=== PATIENT | female | born 1950 | race Caucasian/White ===

== ENCOUNTER → 2017-11-02 11:29 | Outpatient (REF) | payer MEDICARE, MEDICAID, SELFPAY ==
[2017-11-02 12:01] LABS: Prothrombin Time 28.6 sec (9.3-10.8)
== END ==
LOC: LBN 11:29
PROVIDERS: PCP Nurse Practitioner Family; Visit Provider Family Medicine
DX: I48.91 Unspecified atrial fibrillation (principal); Z79.01 Long term (current) use of anticoagulants
CPT/HCPCS: 85610

== ENCOUNTER 2017-11-16 12:10 | Outpatient (REF) | payer MEDICARE, MEDICAID, SELFPAY ==
[2017-11-16 13:44] LABS: Prothrombin Time 40.5 sec (9.3-10.8)
[2017-11-16 13:59] LABS: INR 4.4 (1.0-3.5)
== END 2017-11-16 12:30 ==
LOC: LBN 12:10
PROVIDERS: PCP Nurse Practitioner Family; Visit Provider Family Medicine
DX: I48.91 Unspecified atrial fibrillation (principal); Z79.01 Long term (current) use of anticoagulants
CPT/HCPCS: 85610

== ENCOUNTER 2017-11-23 11:33 | Outpatient (REF) | payer MEDICARE, MEDICAID, SELFPAY ==
[2017-11-23 12:02] LABS: INR 2.7 (1.0-3.5); Prothrombin Time 25.2 sec (9.3-10.8)
== END 2017-11-23 11:53 ==
LOC: LBN 11:33
PROVIDERS: PCP Nurse Practitioner Family; Visit Provider Family Medicine
DX: I48.91 Unspecified atrial fibrillation (principal); Z79.01 Long term (current) use of anticoagulants
CPT/HCPCS: 85610

== ENCOUNTER 2017-11-30 11:58 | Outpatient (REF) | payer MEDICARE, MEDICAID, SELFPAY ==
[2017-11-30 13:33] LABS: INR 3.1 (1.0-3.5); Prothrombin Time 29.3 sec (9.3-10.8)
== END 2017-11-30 12:18 ==
LOC: LBN 11:58
PROVIDERS: PCP Nurse Practitioner Family; Visit Provider Family Medicine
DX: I48.91 Unspecified atrial fibrillation (principal); Z79.01 Long term (current) use of anticoagulants
CPT/HCPCS: 85610

== ENCOUNTER 2017-12-08 11:39 | Outpatient (REF) | payer MEDICARE, MEDICAID, SELFPAY ==
[2017-12-08 14:42] LABS: Prothrombin Time 38.1 sec (9.3-10.8)
[2017-12-08 15:02] LABS: INR 4.1 (1.0-3.5)
== END 2017-12-08 11:59 ==
LOC: LBN 11:39
PROVIDERS: PCP Nurse Practitioner Family; Visit Provider Family Medicine
DX: I48.91 Unspecified atrial fibrillation (principal); Z79.01 Long term (current) use of anticoagulants
CPT/HCPCS: 85610

== ENCOUNTER 2017-12-17 10:58 | Outpatient (REF) | payer MEDICARE, MEDICAID, SELFPAY ==
[2017-12-17 12:07] LABS: INR 2.9 (1.0-3.5); Prothrombin Time 27.2 sec (9.3-10.8)
== END 2017-12-17 11:18 ==
LOC: LBN 10:58
PROVIDERS: PCP Nurse Practitioner Family; Visit Provider Family Medicine
DX: I48.91 Unspecified atrial fibrillation (principal); Z79.01 Long term (current) use of anticoagulants
CPT/HCPCS: 85610

== ENCOUNTER 2017-12-22 11:36 | Outpatient (REF) | payer MEDICARE, MEDICAID, SELFPAY ==
[2017-12-22 13:42] LABS: BUN 18 mg/dL (7-18); CREATININE 0.89 mg/dL (0.55-1.02); Calcium 9.2 mg/dL (8.5-10.1); Chloride 104 mmol/L (98-107); Glucose 80 mg/dL (70-100); Potassium 4.5 mmol/L (3.5-5.1); Sodium 142 mmol/L (136-145); TSH (W/Ref FT4) 9.44 uIU/mL (0.358-3.74)
[2017-12-22 13:53] LABS: Prothrombin Time 42.2 sec (9.3-10.8)
[2017-12-22 13:59] LABS: INR 4.6 (1.0-3.5)
[2017-12-22 14:08] LABS: FREE T4 0.97 ng/dL (0.76-1.46)
== END 2017-12-22 11:56 ==
LOC: LBN 11:36
PROVIDERS: PCP Nurse Practitioner Family; Visit Provider Family Medicine
DX: I10 Essential (primary) hypertension (principal); I48.91 Unspecified atrial fibrillation; R63.5 Abnormal weight gain
CPT/HCPCS: 80048; 84439; 84443; 85610

== ENCOUNTER 2017-12-24 11:23 | Outpatient (REF) | payer MEDICARE, MEDICAID, SELFPAY ==
[2017-12-24 11:54] LABS: INR 2.2 (1.0-3.5); Prothrombin Time 20.9 sec (9.3-10.8)
== END 2017-12-24 11:43 ==
LOC: LBN 11:23
PROVIDERS: PCP Nurse Practitioner Family; Visit Provider Family Medicine
DX: I48.91 Unspecified atrial fibrillation (principal); Z79.01 Long term (current) use of anticoagulants
CPT/HCPCS: 85610

== ENCOUNTER 2017-12-31 12:27 | Outpatient (CLI) | payer MEDICARE, MEDICAID, SELFPAY ==
[2017-12-31 16:24] LABS: Prothrombin Time 18.8 sec (9.3-10.8)
== END 2017-12-31 12:47 ==
LOC: LBN 13:44 → LBO 13:44
PROVIDERS: PCP Nurse Practitioner Family; Visit Provider Family Medicine
DX: I48.2 Chronic atrial fibrillation (principal); Z79.01 Long term (current) use of anticoagulants
CPT/HCPCS: 36415; 85610

== ENCOUNTER 2018-01-10 13:03 | Outpatient (REF) | payer MEDICARE, MEDICAID, SELFPAY ==
[2018-01-10 14:56] LABS: Prothrombin Time 17.7 sec (9.3-10.8)
[2018-01-10 14:57] LABS: INR 1.8 (1.0-3.5)
== END 2018-01-10 13:23 ==
LOC: LBN 13:03
PROVIDERS: PCP Nurse Practitioner Family; Visit Provider Family Medicine
DX: I48.91 Unspecified atrial fibrillation (principal)
CPT/HCPCS: 85610

== ENCOUNTER 2018-01-17 10:32 | Outpatient (REF) | payer MEDICARE, MEDICAID, SELFPAY ==
[2018-01-17 11:16] LABS: INR 1.7 (1.0-3.5); Prothrombin Time 16.3 sec (9.3-10.8)
== END 2018-01-17 10:52 ==
LOC: LBN 10:32
PROVIDERS: PCP Nurse Practitioner Family; Visit Provider Family Medicine
DX: I48.91 Unspecified atrial fibrillation (principal); Z79.01 Long term (current) use of anticoagulants
CPT/HCPCS: 85610

== ENCOUNTER 2018-01-24 11:27 | Outpatient (REF) | payer MEDICARE, MEDICAID, SELFPAY ==
[2018-01-24 11:59] LABS: INR 1.7 (1.0-3.5); Prothrombin Time 16.5 sec (9.3-10.8)
== END 2018-01-24 11:47 ==
LOC: LBN 11:27
PROVIDERS: PCP Nurse Practitioner Family; Visit Provider Family Medicine
DX: I48.91 Unspecified atrial fibrillation (principal); Z79.01 Long term (current) use of anticoagulants
CPT/HCPCS: 85610

== ENCOUNTER 2018-02-01 10:22 | Outpatient (CLI) | payer MEDICARE, MEDICAID, SELFPAY ==
[2018-02-01 11:12] LABS: INR 1.8 (1.0-3.5); Prothrombin Time 17.2 sec (9.3-10.8)
== END 2018-02-01 10:42 ==
PROVIDERS: PCP Nurse Practitioner Family; Visit Provider Family Medicine
DX: I48.91 Unspecified atrial fibrillation (principal); Z79.01 Long term (current) use of anticoagulants
CPT/HCPCS: 36415; 85610

== ENCOUNTER 2018-02-04 14:41 | Outpatient (REF) | payer MEDICARE, MEDICAID, SELFPAY ==
[2018-02-04 15:27] LABS: TSH 5.24 uIU/mL (0.358-3.74)
== END 2018-02-04 15:01 ==
LOC: LBN 14:41
PROVIDERS: PCP Nurse Practitioner Family; Visit Provider Family Medicine
DX: E03.9 Hypothyroidism, unspecified (principal)
CPT/HCPCS: 84443

== ENCOUNTER 2018-02-08 12:16 | Outpatient (REF) | payer MEDICARE, MEDICAID, SELFPAY ==
[2018-02-08 13:28] LABS: INR 1.8 (1.0-3.5); Prothrombin Time 17.1 sec (9.3-10.8)
== END 2018-02-08 12:36 ==
LOC: LBN 12:16
PROVIDERS: PCP Nurse Practitioner Family; Visit Provider Family Medicine
DX: I48.91 Unspecified atrial fibrillation (principal); Z79.01 Long term (current) use of anticoagulants
CPT/HCPCS: 85610

== ENCOUNTER 2018-02-15 11:26 | Outpatient (REF) | payer MEDICARE, MEDICAID, SELFPAY ==
[2018-02-15 12:28] LABS: Prothrombin Time 18.2 sec (9.3-10.8)
[2018-02-15 12:33] LABS: INR 1.9 (1.0-3.5)
== END 2018-02-15 11:46 ==
LOC: LBN 11:26
PROVIDERS: PCP Nurse Practitioner Family; Visit Provider Family Medicine
DX: I48.91 Unspecified atrial fibrillation (principal); Z79.01 Long term (current) use of anticoagulants
CPT/HCPCS: 85610

== ENCOUNTER 2018-02-22 11:37 | Outpatient (REF) | payer MEDICARE, MEDICAID, SELFPAY ==
[2018-02-22 13:02] LABS: INR 2.1 (1.0-3.5)
== END 2018-02-22 11:57 ==
LOC: LBN 11:37
PROVIDERS: PCP Nurse Practitioner Family; Visit Provider Family Medicine
DX: I48.91 Unspecified atrial fibrillation (principal); Z79.01 Long term (current) use of anticoagulants
CPT/HCPCS: 85610

== ENCOUNTER 2018-03-01 11:52 | Outpatient (REF) | payer MEDICARE, MEDICAID, SELFPAY ==
[2018-03-01 12:42] LABS: Prothrombin Time 18.6 sec (9.3-11.0)
[2018-03-01 12:53] LABS: INR 1.8 (1.0-3.5)
== END 2018-03-01 12:12 ==
LOC: LBN 11:52
PROVIDERS: PCP Nurse Practitioner Family; Visit Provider Family Medicine
DX: I48.91 Unspecified atrial fibrillation (principal); Z79.01 Long term (current) use of anticoagulants
CPT/HCPCS: 85610

== ENCOUNTER 2018-03-03 11:45 | Outpatient (REF) | payer MEDICARE, MEDICAID, SELFPAY ==
[2018-03-03 12:09] LABS: Abs Immature Grans 0.01 k/cumm (0.0-0.09); Absolute Basophil Count 0.02 k/cumm (0.0-0.2); Absolute Eosinophil Count 0.19 k/cumm (0.0-0.7); Absolute Lymphocyte Count 1.64 k/cumm (1.2-3.4); Absolute Monocyte Count 0.52 k/cumm (0.11-0.7); Absolute Neutrophil Count 3.04 k/cumm (1.2-6.7); Basophils % 0.4; Eosinophils % 3.5; HCT 42.1 % (36.0-46.0); HGB 13.5 g/dL (12.0-15.5); Immature Grans % 0.2; Lymphocytes % 30.3; Mean Corp. HGB Concentration 32.1 g/dL (32.0-36.0); Mean Corpuscular Hemoglobin 29.6 pg (27.0-33.0); Mean Corpuscular Volume 92.3 fL (80-95); Mean Platelet Volume 12.1 fL (8.0-11.0); Monocytes % 9.6; Platelet Count 184 x1000/uL (130-400); RBC 4.56 m/cumm (4.00-5.20); RBC Distribution Width 14.5 % (11.7-14.6); White Blood Cell Count 5.42 k/cumm (4.4-10.8)
[2018-03-03 13:02] LABS: ALT 32 U/L (12-78); AST 41 U/L (15-37); Albumin 3.9 g/dL (3.4-5.0); Alkaline Phosphatase 113 U/L (46-116); Anion Gap 9.5 mmol/L (3-11); BUN 16 mg/dL (7-18); Bilirubin, Total 0.6 mg/dL (0.2-1.0); CO2 29.5 mmol/L (21.0-32.0); CREATININE 0.75 mg/dL (0.55-1.02); Calcium 9.3 mg/dL (8.5-10.1); Chloride 103 mmol/L (98-107); Glucose 84 mg/dL (70-100); Potassium 4.3 mmol/L (3.5-5.1); Sodium 142 mmol/L (136-145); Total Protein 7.7 g/dL (6.4-8.2)
== END 2018-03-03 12:05 ==
LOC: LBN 11:45
PROVIDERS: PCP Nurse Practitioner Family; Visit Provider Family Medicine
DX: R53.83 Other fatigue (principal); N39.0 Urinary tract infection, site not specified
CPT/HCPCS: 80053; 87077; 85025; 87086

== ENCOUNTER 2018-03-31 11:41 | Outpatient (REF) | payer MEDICARE, MEDICAID, SELFPAY ==
[2018-03-31 12:13] LABS: INR 2.1 (0.9-1.1); Prothrombin Time 21.5 sec (9.3-11.0)
== END 2018-03-31 12:01 ==
LOC: LBN 11:41
PROVIDERS: PCP Nurse Practitioner Family; Visit Provider Family Medicine
DX: I48.91 Unspecified atrial fibrillation (principal); Z79.01 Long term (current) use of anticoagulants
CPT/HCPCS: 85610

== ENCOUNTER 2018-04-14 11:59 | Outpatient (REF) | payer MEDICARE, MEDICAID, SELFPAY ==
[2018-04-14 13:03] LABS: Prothrombin Time 13.5 sec (9.3-11.0)
[2018-04-14 13:13] LABS: INR 1.3 (0.9-1.1)
[2018-04-14 13:14] LABS: TSH (W/Ref FT4) 3.09 uIU/mL (0.358-3.74)
== END 2018-04-14 12:19 ==
LOC: LBN 11:59
PROVIDERS: PCP Nurse Practitioner Family; Visit Provider Family Medicine
DX: I48.91 Unspecified atrial fibrillation (principal); R00.2 Palpitations; Z79.01 Long term (current) use of anticoagulants
CPT/HCPCS: 84443; 85610

== ENCOUNTER 2018-04-21 12:02 | Outpatient (REF) | payer MEDICARE, MEDICAID, SELFPAY ==
[2018-04-21 12:40] LABS: INR 2.5 (0.9-1.1); Prothrombin Time 25.6 sec (9.3-11.0)
== END 2018-04-21 12:22 ==
LOC: LBN 12:02
PROVIDERS: PCP Nurse Practitioner Family; Visit Provider Family Medicine
DX: I48.91 Unspecified atrial fibrillation (principal); Z79.01 Long term (current) use of anticoagulants
CPT/HCPCS: 85610

== ENCOUNTER 2018-05-03 15:32 | Outpatient (REF) | payer MEDICARE, MEDICAID, SELFPAY ==
[2018-05-03 16:18] LABS: Anion Gap 7.3 mmol/L (3-11); BUN 18 mg/dL (7-18); CO2 32.7 mmol/L (21.0-32.0); CREATININE 0.92 mg/dL (0.55-1.02); Calcium 8.8 mg/dL (8.5-10.1); Chloride 103 mmol/L (98-107); Glucose 125 mg/dL (70-100); Potassium 3.8 mmol/L (3.5-5.1); Sodium 143 mmol/L (136-145)
[2018-05-03 16:23] LABS: INR 3.1 (0.9-1.1); Prothrombin Time 31.4 sec (9.3-11.0)
== END 2018-05-03 15:52 ==
LOC: LBN 15:32
PROVIDERS: PCP Nurse Practitioner Family; Visit Provider Family Medicine
DX: I48.91 Unspecified atrial fibrillation (principal); R60.9 Edema, unspecified; Z79.01 Long term (current) use of anticoagulants
CPT/HCPCS: 80048; 85610

== ENCOUNTER 2018-05-16 09:59 | Outpatient (REF) | payer MEDICARE, MEDICAID, SELFPAY ==
[2018-05-16 10:46] LABS: INR 3.1 (0.9-1.1); Prothrombin Time 31.7 sec (9.3-11.0)
== END 2018-05-16 10:19 ==
LOC: LBN 09:59
PROVIDERS: PCP Nurse Practitioner Family; Visit Provider Family Medicine
DX: I48.91 Unspecified atrial fibrillation (principal); Z79.01 Long term (current) use of anticoagulants
CPT/HCPCS: 85610

== ENCOUNTER 2018-05-19 11:20 | Outpatient (REF) | payer MEDICARE, MEDICAID, SELFPAY ==
[2018-05-19 12:14] LABS: INR 3.4 (0.9-1.1); Prothrombin Time 34.2 sec (9.3-11.0)
== END 2018-05-19 11:40 ==
LOC: LBN 11:20
PROVIDERS: PCP Nurse Practitioner Family; Visit Provider Family Medicine
DX: I48.91 Unspecified atrial fibrillation (principal); Z79.01 Long term (current) use of anticoagulants
CPT/HCPCS: 85610

== ENCOUNTER 2018-05-26 12:33 | Outpatient (REF) | payer MEDICARE, MEDICAID, SELFPAY ==
[2018-05-26 13:25] LABS: INR 2.5 (0.9-1.1)
== END 2018-05-26 12:53 ==
LOC: LBN 12:33
PROVIDERS: PCP Nurse Practitioner Family; Visit Provider Family Medicine
DX: I48.91 Unspecified atrial fibrillation (principal); Z79.01 Long term (current) use of anticoagulants
CPT/HCPCS: 85610

== ENCOUNTER 2018-06-09 12:01 | Outpatient (REF) | payer MEDICARE, MEDICAID, SELFPAY ==
[2018-06-09 13:25] LABS: ALT 23 U/L (12-78); AST 31 U/L (15-37); Albumin 3.9 g/dL (3.4-5.0); Alkaline Phosphatase 126 U/L (46-116); Anion Gap 9.7 mmol/L (3-11); BUN 16 mg/dL (7-18); Bilirubin, Total 0.6 mg/dL (0.2-1.0); CO2 30.3 mmol/L (21.0-32.0); CREATININE 0.85 mg/dL (0.55-1.02); Calcium 9.1 mg/dL (8.5-10.1); Chloride 103 mmol/L (98-107); Glucose 81 mg/dL (70-100); Potassium 3.6 mmol/L (3.5-5.1); Sodium 143 mmol/L (136-145); Total Protein 7.9 g/dL (6.4-8.2)
[2018-06-09 13:26] LABS: INR 2.1 (0.9-1.1); Prothrombin Time 21.5 sec (9.3-11.0)
== END 2018-06-09 12:21 ==
LOC: LBN 12:01
PROVIDERS: PCP Nurse Practitioner Family; Visit Provider Family Medicine
DX: I48.91 Unspecified atrial fibrillation (principal); I10 Essential (primary) hypertension; Z79.01 Long term (current) use of anticoagulants
CPT/HCPCS: 80053; 85610

== ENCOUNTER 2018-06-16 09:14 | Outpatient (REF) | payer MEDICARE, MEDICAID, SELFPAY ==
[2018-06-16 09:44] LABS: INR 2.5 (0.9-1.1); Prothrombin Time 25.2 sec (9.3-11.0)
== END 2018-06-16 09:34 ==
LOC: LBN 09:14
PROVIDERS: PCP Nurse Practitioner Family; Visit Provider Family Medicine
DX: I48.91 Unspecified atrial fibrillation (principal); Z79.01 Long term (current) use of anticoagulants
CPT/HCPCS: 85610

== ENCOUNTER 2018-06-30 10:07 | Outpatient (REF) | payer MEDICARE, MEDICAID, SELFPAY ==
[2018-06-30 10:36] LABS: INR 2.2 (0.9-1.1); Prothrombin Time 22.5 sec (9.3-11.0)
== END 2018-06-30 10:27 ==
LOC: LBN 10:07
PROVIDERS: PCP Nurse Practitioner Family; Visit Provider Family Medicine
DX: I48.91 Unspecified atrial fibrillation (principal); Z79.01 Long term (current) use of anticoagulants
CPT/HCPCS: 85610

== ENCOUNTER 2018-07-29 08:59 | Outpatient (REF) | payer MEDICARE, MEDICAID, SELFPAY ==
[2018-07-29 09:51] LABS: INR 3.7 (0.9-1.1); Prothrombin Time 37.8 sec (9.3-11.0)
== END 2018-07-29 09:19 ==
LOC: LBN 08:59
PROVIDERS: PCP Nurse Practitioner Family; Visit Provider Family Medicine
DX: I48.91 Unspecified atrial fibrillation (principal); Z79.01 Long term (current) use of anticoagulants
CPT/HCPCS: 85610

== ENCOUNTER 2018-08-04 14:13 | Outpatient (REF) | payer MEDICARE, MEDICAID, SELFPAY ==
[2018-08-04 14:41] LABS: INR 3.5 (0.9-1.1); Prothrombin Time 35.4 sec (9.3-11.0)
== END 2018-08-04 14:33 ==
LOC: LBN 14:13
PROVIDERS: PCP Nurse Practitioner Family; Visit Provider Family Medicine
DX: I48.91 Unspecified atrial fibrillation (principal); Z79.01 Long term (current) use of anticoagulants
CPT/HCPCS: 85610

== ENCOUNTER 2018-08-06 11:44 | Outpatient (CLI) | payer MEDICARE, MEDICAID, SELFPAY ==
[2018-08-06 12:09] LABS: Absolute Basophil Count 0.01 k/cumm (0.0-0.2); Absolute Eosinophil Count 0.08 k/cumm (0.0-0.7); Absolute Lymphocyte Count 1.85 k/cumm (1.2-3.4); Absolute Monocyte Count 0.68 k/cumm (0.11-0.7); Absolute Neutrophil Count 2.93 k/cumm (1.2-6.7); Basophils % 0.2; Eosinophils % 1.4; HCT 44.5 % (36.0-46.0); HGB 14.9 g/dL (12.0-15.5); Lymphocytes % 33.3; Mean Corp. HGB Concentration 33.5 g/dL (32.0-36.0); Mean Corpuscular Hemoglobin 29.3 pg (27.0-33.0); Mean Corpuscular Volume 87.6 fL (80-95); Mean Platelet Volume 12.7 fL (8.0-11.0); Monocytes % 12.3; Neutrophils % 52.8; Platelet Count 156 x1000/uL (130-400); RBC 5.08 m/cumm (4.00-5.20); RBC Distribution Width 14.1 % (11.7-14.6); White Blood Cell Count 5.55 k/cumm (4.4-10.8)
[2018-08-06 12:36] LABS: Prothrombin Time 52.2 sec (9.3-11.0)
[2018-08-06 12:44] LABS: INR 5.1 (0.9-1.1)
[2018-08-06 13:50] LABS: ALT 34 U/L (12-78); AST 38 U/L (15-37); Albumin 3.9 g/dL (3.4-5.0); Alkaline Phosphatase 100 U/L (46-116); Anion Gap 7.5 mmol/L (3-11); BUN 16 mg/dL (7-18); Bilirubin, Total 0.8 mg/dL (0.2-1.0); CO2 29.5 mmol/L (21.0-32.0); CREATININE 0.86 mg/dL (0.55-1.02); Calcium 9.5 mg/dL (8.5-10.1); Chloride 102 mmol/L (98-107); Glucose 98 mg/dL (70-100); Potassium 3.6 mmol/L (3.5-5.1); Sodium 139 mmol/L (136-145); TSH 0.95 uIU/mL (0.358-3.74); Total Protein 7.6 g/dL (6.4-8.2)
== END 2018-08-06 12:04 ==
PROVIDERS: PCP Nurse Practitioner Family; Visit Provider Family Medicine
DX: I48.91 Unspecified atrial fibrillation (principal); R53.83 Other fatigue; E03.9 Hypothyroidism, unspecified; Z79.01 Long term (current) use of anticoagulants
CPT/HCPCS: 36415; 80053; 84443; 85025; 85610

== ENCOUNTER 2018-08-08 09:14 | Outpatient (REF) | payer MEDICARE, MEDICAID, SELFPAY ==
[2018-08-08 09:33] LABS: INR 2.9 (0.9-1.1); Prothrombin Time 29.4 sec (9.3-11.0)
== END 2018-08-08 09:34 ==
LOC: LBN 09:14
PROVIDERS: PCP Nurse Practitioner Family; Visit Provider Family Medicine
DX: I48.91 Unspecified atrial fibrillation (principal); Z79.01 Long term (current) use of anticoagulants
CPT/HCPCS: 85610

== ENCOUNTER 2018-08-09 13:46 | Outpatient (REF) | payer MEDICARE, MEDICAID, SELFPAY ==
[2018-08-09 15:21] LABS: Bilirubin Negative (Negative); Blood Moderate (Negative); Clarity Clear; Glucose Negative (Negative); Ketones Negative (Negative); Leukocyte Esterase Negative (Negative); Nitrite Negative (Negative); pH 5.5 (5-8)
[2018-08-09 15:31] LABS: Epithelial Cells Rare HPF (Negative); WBC 0-2 HPF (0-5)
[2018-08-09 15:32] LABS: Bacteria Negative HPF (Negative); C & S Indicated? No; Casts Negative LPF (Negative); Crystals Negative HPF (Negative); Mucus Negative (Negative)
== END 2018-08-09 14:06 ==
LOC: LBN 13:46
PROVIDERS: PCP Nurse Practitioner Family; Visit Provider Family Medicine
DX: N39.0 Urinary tract infection, site not specified (principal)
CPT/HCPCS: 81003; 81015

== ENCOUNTER 2018-08-16 14:48 | Outpatient (REF) | payer MEDICARE, MEDICAID, SELFPAY ==
[2018-08-16 15:40] LABS: INR 2.9 (0.9-1.1)
== END 2018-08-16 15:08 ==
LOC: LBN 14:48
PROVIDERS: PCP Nurse Practitioner Family; Visit Provider Family Medicine
DX: I48.91 Unspecified atrial fibrillation (principal); Z79.01 Long term (current) use of anticoagulants
CPT/HCPCS: 85610

== ENCOUNTER 2018-08-19 12:34 | Outpatient (REF) | payer MEDICARE, MEDICAID, SELFPAY ==
[2018-08-19 13:44] LABS: Bilirubin Negative (Negative); Blood Small (Negative); Clarity Clear; Glucose Negative (Negative); Ketones Negative (Negative); Leukocyte Esterase Negative (Negative); Nitrite Negative (Negative); Specific Gravity 1.015 (1.005-1.025); Urobilinogen 0.2 EU/dL (Up TO 0.2)
[2018-08-19 14:01] LABS: Bacteria Rare HPF (Negative); C & S Indicated? No; Casts Negative LPF (Negative); Crystals Negative HPF (Negative); Epithelial Cells Few HPF (Negative); Mucus Trace (Negative); Other Cells Few Renal (Negative); RBC 0-2 (0-2); WBC 0-2 HPF (0-5)
== END 2018-08-19 12:54 ==
LOC: LBN 12:34
PROVIDERS: PCP Nurse Practitioner Family; Visit Provider Family Medicine
DX: N39.0 Urinary tract infection, site not specified (principal)
CPT/HCPCS: 81003; 81015

== ENCOUNTER 2018-08-31 15:38 | Outpatient (REF) | payer MEDICARE, MEDICAID, SELFPAY ==
[2018-08-31 16:17] LABS: INR 1.7 (0.9-1.1); Prothrombin Time 17.2 sec (9.3-11.0)
== END 2018-08-31 15:58 ==
LOC: LBN 15:38
PROVIDERS: PCP Nurse Practitioner Family; Visit Provider Family Medicine
DX: I48.91 Unspecified atrial fibrillation (principal); Z79.01 Long term (current) use of anticoagulants
CPT/HCPCS: 85610

== ENCOUNTER 2018-09-07 11:40 | Outpatient (REF) | payer MEDICARE, MEDICAID, SELFPAY ==
[2018-09-07 12:23] LABS: Prothrombin Time 18.6 sec (9.3-11.0)
[2018-09-07 12:28] LABS: INR 1.8 (0.9-1.1)
== END 2018-09-07 12:00 ==
LOC: LBN 11:40
PROVIDERS: PCP Nurse Practitioner Family; Visit Provider Family Medicine
DX: I48.91 Unspecified atrial fibrillation (principal); Z79.01 Long term (current) use of anticoagulants
CPT/HCPCS: 85610

== ENCOUNTER 2018-09-16 16:01 | Outpatient (CLI) | payer MEDICARE, MEDICAID, SELFPAY ==
[2018-09-16 16:37] LABS: INR 2.3 (0.9-1.1); Prothrombin Time 23.3 sec (9.3-11.0)
== END 2018-09-16 16:21 ==
PROVIDERS: PCP Nurse Practitioner Family; Visit Provider Family Medicine
DX: I48.91 Unspecified atrial fibrillation (principal); Z79.01 Long term (current) use of anticoagulants
CPT/HCPCS: 36415; 85610

== ENCOUNTER 2018-09-22 15:10 | Outpatient (CLI) | payer MEDICARE, MEDICAID, SELFPAY ==
[2018-09-22 16:08] LABS: INR 2.7 (0.9-1.1); Prothrombin Time 26.9 sec (9.3-11.0)
== END 2018-09-22 15:30 ==
PROVIDERS: PCP Family Medicine; Visit Provider Family Medicine
DX: I48.91 Unspecified atrial fibrillation (principal); Z79.01 Long term (current) use of anticoagulants
CPT/HCPCS: 36415; 85610

== ENCOUNTER 2018-09-28 11:31 | Outpatient (REF) | payer MEDICARE, MEDICAID, SELFPAY ==
[2018-09-28 14:10] LABS: INR 1.8 (0.9-1.1); Prothrombin Time 18.1 sec (9.3-11.0)
== END 2018-09-28 11:51 ==
LOC: LBN 11:31
PROVIDERS: PCP Family Medicine; Visit Provider Family Medicine
DX: I48.91 Unspecified atrial fibrillation (principal); Z79.01 Long term (current) use of anticoagulants
CPT/HCPCS: 85610

== ENCOUNTER 2019-01-12 08:45 | Outpatient (REF) | payer MEDICARE, MEDICAID, SELFPAY ==
[2019-01-12 10:16] LABS: Iron 63 ug/dL (50-175)
[2019-01-12 10:24] LABS: AST 30 U/L (15-37); Albumin 3.9 g/dL (3.4-5.0); Anion Gap 9.8 mmol/L (3-11); Bilirubin, Total 0.8 mg/dL (0.2-1.0); CO2 28.2 mmol/L (21.0-32.0); Chloride 105 mmol/L (98-107); Glucose 91 mg/dL (70-100); HDL Cholesterol 39 mg/dL (40-60); Potassium 3.9 mmol/L (3.5-5.1); Sodium 143 mmol/L (136-145)
[2019-01-12 10:57] LABS: ALT 35 U/L (14-59); Alkaline Phosphatase 131 U/L (46-116); BUN 18 mg/dL (7-18); CREATININE 0.82 mg/dL (0.55-1.02); Calcium 9.4 mg/dL (8.5-10.1); Calculated LDL 135 mg/dL; Cholesterol 202 mg/dL (50-200); Total Protein 7.7 g/dL (6.4-8.2); Triglyceride 144 mg/dL (30-150)
== END 2019-01-12 09:05 ==
LOC: LBN 08:45
PROVIDERS: Visit Provider Nurse Practitioner Gerontology
DX: E03.9 Hypothyroidism, unspecified (principal); I10 Essential (primary) hypertension; E78.5 Hyperlipidemia, unspecified; I48.91 Unspecified atrial fibrillation; Z79.899 Other long term (current) drug therapy
CPT/HCPCS: 80053; 80061; 83540; 84443

== ENCOUNTER 2019-01-16 13:52 | Outpatient (REF) | payer MEDICARE, MEDICAID, SELFPAY ==
[2019-01-16 14:17] LABS: Abs Immature Grans 0.02 k/cumm (0.0-0.09); Absolute Basophil Count 0.02 k/cumm (0.0-0.2); Absolute Eosinophil Count 0.07 k/cumm (0.0-0.7); Absolute Lymphocyte Count 2.13 k/cumm (1.2-3.4); Absolute Monocyte Count 0.51 k/cumm (0.11-0.7); Basophils % 0.3; Eosinophils % 1.2; HCT 42.6 % (36.0-46.0); HGB 14.1 g/dL (12.0-15.5); Immature Grans % 0.3; Lymphocytes % 36.4; Mean Corp. HGB Concentration 33.1 g/dL (32.0-36.0); Mean Corpuscular Hemoglobin 29.9 pg (27.0-33.0); Mean Corpuscular Volume 90.3 fL (80-95); Mean Platelet Volume 11.9 fL (8.0-11.0); Monocytes % 8.7; Neutrophils % 53.1; Platelet Count 220 x1000/uL (130-400); RBC 4.72 m/cumm (4.00-5.20); RBC Distribution Width 14.5 % (11.7-14.6); White Blood Cell Count 5.85 k/cumm (4.4-10.8)
== END 2019-01-16 14:12 ==
LOC: LBN 13:52
PROVIDERS: Visit Provider Nurse Practitioner Gerontology
DX: M62.81 Muscle weakness (generalized) (principal); F03.90 Unspecified dementia, unspecified severity, without behavioral disturbance, psychotic disturbance, mood disturbance, and anxiety; I10 Essential (primary) hypertension
CPT/HCPCS: 85025

== ENCOUNTER 2019-05-01 13:08 | Outpatient (REF) | payer MEDICARE, MEDICAID, SELFPAY ==
[2019-05-01 13:46] LABS: INR 2.8 (0.9-1.1); Prothrombin Time 27.1 sec (9.3-11.0)
== END 2019-05-01 13:28 ==
LOC: LBN 13:08
PROVIDERS: PCP Family Medicine; Visit Provider Family Medicine
DX: I48.91 Unspecified atrial fibrillation (principal); Z79.01 Long term (current) use of anticoagulants
CPT/HCPCS: 85610

== ENCOUNTER 2019-05-15 18:13 | Outpatient (REF) | payer MEDICARE, MEDICAID, SELFPAY ==
[2019-05-15 19:09] LABS: INR 2.5 (0.9-1.1); Prothrombin Time 24.8 sec (9.3-11.0)
== END 2019-05-15 18:33 ==
LOC: NCHCN 18:13
PROVIDERS: PCP Family Medicine; Visit Provider Family Medicine
DX: I48.91 Unspecified atrial fibrillation (principal); Z79.01 Long term (current) use of anticoagulants
CPT/HCPCS: 85610

== ENCOUNTER 2019-05-29 12:21 | Outpatient (REF) | payer MEDICARE, MEDICAID, SELFPAY ==
[2019-05-29 14:40] LABS: Anion Gap 9.7 mmol/L (3-11); BUN 19 mg/dL (7-18); CO2 30.3 mmol/L (21.0-32.0); CREATININE 0.71 mg/dL (0.55-1.02); Calcium 9.3 mg/dL (8.5-10.1); Chloride 103 mmol/L (98-107); Glucose 77 mg/dL (74-106); Potassium 4.1 mmol/L (3.5-5.1); Sodium 143 mmol/L (136-145); TSH (W/Ref FT4) 3.99 uIU/mL (0.36-3.74)
[2019-05-29 14:56] LABS: FREE T4 1.42 ng/dL (0.76-1.46)
== END 2019-05-29 12:41 ==
LOC: LBN 12:21
PROVIDERS: PCP Family Medicine; Visit Provider Family Medicine
DX: I10 Essential (primary) hypertension (principal); E03.9 Hypothyroidism, unspecified
CPT/HCPCS: 80048; 84439; 84443

== ENCOUNTER 2019-08-23 20:11 | Outpatient (REF) | payer MEDICARE, MEDICAID, SELFPAY ==
[2019-08-23 15:32] LABS: Bilirubin Negative (Negative); Blood Negative (Negative); Clarity Clear (Clear); Glucose Negative (Negative); Ketones Negative (Negative); Leukocyte Esterase Negative (Negative); Nitrite Negative (Negative); Urobilinogen 0.2 EU/dL (Up TO 0.2)
== END 2019-08-23 20:31 ==
LOC: LBN 20:11
PROVIDERS: PCP Family Medicine; Visit Provider Family Medicine
DX: N39.0 Urinary tract infection, site not specified (principal)
CPT/HCPCS: 81003

== ENCOUNTER 2020-08-07 19:23 | Outpatient (REF) | payer MEDICARE, MEDICAID, SELFPAY ==
[2020-08-07 21:07] LABS: Bilirubin Negative (Negative); Blood Negative (Negative); Glucose Negative (Negative); Ketones Negative (Negative); Leukocyte Esterase Trace (Negative); Nitrite Positive (Negative); Urobilinogen 0.2 EU/dL (Up TO 0.2); pH 7.5 (5-8)
[2020-08-07 21:10] LABS: Clarity Sl Cloudy (Clear)
[2020-08-07 21:14] LABS: Bacteria Many HPF (Negative); C & S Indicated? C&S Done As Ordered; Casts Negative LPF (Negative); Crystals Negative HPF (Negative); Epithelial Cells Rare HPF (Negative); Mucus Negative (Negative); RBC 0-2 HPF (0-2)
== END 2020-08-07 19:24 | disposition home or self-care (01) ==
LOC: LBN 19:23
PROVIDERS: PCP Family Medicine; Visit Provider Family Medicine
DX: R30.0 Dysuria (principal)
CPT/HCPCS: 87077; 81003; 81015; 87086; 87186

== ENCOUNTER 2020-09-29 15:18 | Inpatient (IN) | payer MEDICARE, MEDICAID, SELFPAY ==
--- NOTE | 2020-09-29 15:18 | ED.GENADUL_ITS ---
Discharge Plan Disposition Patient Disposition: [facility] INPATIENT Condition: Stable Discharge Details Clinical Impression: Fracture of left hip Admit Date/Time: 09/29/20 17:50 Admit Provider: Faisal Jones Attending Provider: Faisal Jones Primary Care Provider: Kiersten Oconnor ED Provider: Christina Gonsalez Discharge Data Discharge Date/Time-TO BE ENTERED AT DEPARTURE: 09/29/20 19:28 Medical Decision Making 70-year-old female with a history of atrial fibrillation, mechanical aortic valve replacement, pacemaker, hypertension, Alzheimer's dementia presents from the [facility] for suspected left hip fracture. Medications from the [facility] confirmed that patient is not taking Coumadin due to fall risk. Discussed with nurse practitioner Essence at the [facility] and patient is basically comfort measures only and on mostly prn medication. Patient is a poor historian at baseline and is agitated and irritable in the room. She is laying on her left side and would not allow movement or full inspection of her left side. There was no evidence of head, chest or abdominal trauma. No evidence of b/l upper extremity or right lower extremity trauma. She appears nontoxic. She is confused but does endorse left hip pain. As this fall was unwitnessed, will obtain screening labs, EKG, urinalysis, CT head and cervical spine, chest x-ray, left hip and pelvis x-rays. Will give a dose of IV Tylenol and fluids. Radiology unable to obtain CT head and cervical spine due to patient movement and agitation. They were able to obtain hip and pelvis x-rays and there is a left femoral neck fracture. Chest x-ray notes faint bibasilar opacities but no fracture. There was no report of cough, fever and she has normal oxygen saturation, so do not suspect pneumonia at this time. Will give patient a dose of morphine and Ativan for hip fracture and send back down to radiology once relaxed. Case discussed with patient's brother Enrique who is her guardian and as patient is very active he would like the hip repaired. Case discussed with Dr. Cohn. Likely plan for surgery Wednesday. Case discussed with hospitalist who accepts patient for admission. Will place Spangler catheter as she will be nonambulatory and in prep for surgery. CT head and cervical spine negative for acute findings. Labs reviewed. Normal white blood cell count. CK 113. Medical Records Medical records reviewed: Yes I reviewed the patient's medical records. Imaging Data Radiologic Study: Radiologist's impression: CT Head Without Contrast Exam date and time: 09/29/2020 3:47 PM Age: 70 years old Clinical indication: Injury or trauma; Fall; Concussion/head injury TECHNIQUE: Imaging protocol: Computed tomography of the head without contrast. COMPARISON: CT HEAD WITHOUT CONTRAST 11/02/2016 2:09 PM FINDINGS: Brain: Moderate white matter hypoattenuation present which is nonspecific, but most likely due to chronic small vessel ischemia. Cerebral ventricles: Moderate ventricular dilatation appears to be due to volume loss. Paranasal sinuses: Visualized sinuses are unremarkable. No fluid levels. Mastoid air cells: Visualized mastoid air cells are well aerated. Bones/joints: Unremarkable. No acute fracture. Soft tissues: Unremarkable. IMPRESSION: No acute intracranial pathology CT Cervical Spine Without Contrast Exam date and time: 09/29/2020 3:47 PM Age: 70 years old Clinical indication: Injury or trauma; Fall; Concussion/head injury TECHNIQUE: Imaging protocol: Computed tomography images of the cervical spine without contrast. COMPARISON: CT HEAD WITHOUT CONTRAST 11/02/2016 2:09 PM FINDINGS: Bones/joints: No acute fracture identified. Normal alignment. Discs/Spinal canal/Neural foramina: Multilevel degenerative changes cause [id number] neural foraminal stenoses in the mid cervical spine. Lungs: Lung apices are normal. Soft tissues: Unremarkable. Other findings: Motion limits exam. IMPRESSION: Motion limits exam. Fracture not suspected, but if there is high persistent clinical concern, repeat study is recommended. XR Chest Exam date and time: 09/29/2020 3:52 PM Age: 70 years old Clinical indication: Other: S/P fall R/O FX TECHNIQUE: Imaging protocol: XR of the chest. Views: 1 view. COMPARISON: CR CHEST 2 VIEWS PA,LAT 01/23/2017 5:00 PM FINDINGS: Tubes, catheters and devices: Cardiac leads and postsurgical changes noted. Lungs: Faint bibasilar opacities. Mild blunting of the bilateral costophrenic angles. Heart/Mediastinum: Unremarkable. No cardiomegaly. Bones/joints: Unremarkable. IMPRESSION: 1. No displaced fracture. 2. Faint bibasilar opacities. Suspect atelectasis or infiltrate and tiny effusion on the right. XR Left Hip Exam date and time: 09/29/2020 3:52 PM Age: 70 years old Clinical indication: Other: S/P fall R/O FX TECHNIQUE: Imaging protocol: XR Left hip. Views: 2 or 3 views hip with pelvis when performed. COMPARISON: CT ABD/PELVIS WO W CONTRAST 07/08/2016 10:19 AM FINDINGS: Bones/joints: There is a transverse left femoral neck fracture. There is superior displacement of the distal fragment. Mild angulation. Soft tissues: Unremarkable. IMPRESSION: Mildly displaced left femoral neck fracture Lab Data Lab results reviewed: Yes I reviewed the patient's lab results. Labs: Laboratory Tests Range/Units 09/29/20 09/29/20 09/29/20 17:00 17:00 17:00 WBC (4.4-10.8) 10^3/uL 8.40 RBC (3.93-5.22) 10^6/uL 4.47 Hgb (11.2-15.7) g/dL 13.9 Hct (36.0-46.0) % 41.9 MCV (80-95) fL 93.7 MCH (27.0-33.0) pg 31.1 MCHC (32.0-36.0) % 33.2 RDW (11.7-14.6) % 12.4 Plt Count (130-400) 10^3/uL 162 MPV (8.0-11.0) fL 10.7 Immature Gran % 0.6 Neutrophils % 80.3 Lymphocytes % 11.4 Monocytes % 7.5 Eosinophils % 0.1 Basophils % 0.1 Nucleated RBC % % 0 Absolute Neutrophils (1.2-6.7) 10^3/uL 6.74 H Absolute Lymphocytes (1.2-3.4) 10^3/uL 0.96 L Absolute Monocytes (0.1-0.8) 10^3/uL 0.63 Absolute Eosinophils (0.0-0.7) 10^3/uL 0.01 Absolute Basophils (0.0-0.2) 10^3/uL 0.01 PT (9.3-11.0) sec 11.6 H INR (0.9-1.1) 1.2 H APTT (21.0-27.5) sec 24.3 Sodium (136-145) mmol/L Potassium (3.5-5.1) mmol/L Chloride (98-107) mmol/L Carbon Dioxide (21.0-32.0) mmol/L Anion Gap (3-11) mmol/L BUN (7-18) mg/dL Creatinine (0.55-1.02) mg/dL Estimated GFR/1.73 m2 (mL/min/1.73m2) Glucose (74-106) mg/dL Calcium (8.5-10.1) mg/dL Total Bilirubin (0.2-1.0) mg/dL AST (15-37) U/L ALT (14-59) U/L Alkaline Phosphatase (46-116) U/L Creatine Kinase (26-192) U/L 113 Total Protein (6.4-8.2) g/dL Albumin (3.4-5.0) g/dL Range/Units 09/29/20 17:00 WBC (4.4-10.8) 10^3/uL RBC (3.93-5.22) 10^6/uL Hgb (11.2-15.7) g/dL Hct (36.0-46.0) % MCV (80-95) fL MCH (27.0-33.0) pg MCHC (32.0-36.0) % RDW (11.7-14.6) % Plt Count (130-400) 10^3/uL MPV (8.0-11.0) fL Immature Gran % Neutrophils % Lymphocytes % Monocytes % Eosinophils % Basophils % Nucleated RBC % % Absolute Neutrophils (1.2-6.7) 10^3/uL Absolute Lymphocytes (1.2-3.4) 10^3/uL Absolute Monocytes (0.1-0.8) 10^3/uL Absolute Eosinophils (0.0-0.7) 10^3/uL Absolute Basophils (0.0-0.2) 10^3/uL PT (9.3-11.0) sec INR (0.9-1.1) APTT (21.0-27.5) sec Sodium (136-145) mmol/L 144 Potassium (3.5-5.1) mmol/L 3.9 Chloride (98-107) mmol/L 107 Carbon Dioxide (21.0-32.0) mmol/L 26.7 Anion Gap (3-11) mmol/L 10.3 BUN (7-18) mg/dL 21 H Creatinine (0.55-1.02) mg/dL 0.8 Estimated GFR/1.73 m2 (mL/min/1.73m2) >= 60.00 Glucose (74-106) mg/dL 137 H Calcium (8.5-10.1) mg/dL 9.2 Total Bilirubin (0.2-1.0) mg/dL 0.7 AST (15-37) U/L 36 ALT (14-59) U/L 42 Alkaline Phosphatase (46-116) U/L 93 Creatine Kinase (26-192) U/L Total Protein (6.4-8.2) g/dL 7.5 Albumin (3.4-5.0) g/dL 3.7 ECG Data Attestation: I personally reviewed and interpreted this ECG (s) as follows: Interpretation: Rate of 116, A. fib, right bundle branch block. No STEMI. HPI General Mode of arrival: EMS . Date/Time Provider Initiated Documentation: 09/29/20 15:41 . Limitations to Documentation: altered mental status . Information obtained by: patient, EMS and RN notes reviewed . HPI Narrative: Patient is a 70-year-old female with a history of atrial fibrillation and mechanical aortic valve replacement, pacemaker, hypertension, Alzheimer's dementia presents from the [facility] rehab for potential hip fracture. Staff found patient on the floor in her room at the [facility] due to a suspected unwitnessed fall. Patient c/o of left hip pain to staff at the [facility] who also noted her left lower extremity to be shortened and externally rotated. She was given ativan and morphine prior to arrival. There is no report of known head injury. LEONEL Lowry at the [facility] states that pt is DNR/DNI and has no transport status but states the family would like to know if she has a hip fracture as she is quite active and ambulatory at baseline and are concerned whether it is safe to proceed with surgery considering her cardiac history. Related Data Home Medications Medication Instructions Recorded Confirmed acetaminophen 500 mg PO Q4H PRN 09/29/20 09/29/20 acetaminophen [Tylenol Extra 640 mg PO TID 09/29/20 09/29/20 Strength] bisacodyl 10 mg DC DAILY PRN 09/29/20 09/29/20 docusate sodium [Colace] 100 mg PO BID PRN 09/29/20 09/29/20 hyoscyamine sulfate 0.125 mg PO QID PRN 09/29/20 09/29/20 lorazepam 0.5 - 1 mg IM Q4H PRN 09/29/20 09/29/20 lorazepam 0.5 mg PO Q4H PRN 09/29/20 09/29/20 morphine concentrate 5 mg SUBLINGUAL Q2H PRN 09/29/20 09/29/20 ondansetron HCl 4 mg PO PRN PRN 09/29/20 09/29/20 promethazine 25 mg DC Q6H PRN 09/29/20 09/29/20 scopolamine base 1 patch TRANSDERMAL Q3D PRN 09/29/20 09/29/20 Allergies Allergy/AdvReac Type Severity Reaction Status Date / Time No Known Allergies Allergy Unverified 09/29/20 15:26 Review of Systems Unobtainable due to mental status [facility] Medical History Alzheimer's dementia Atrial fibrillation Fibromyalgia Pacemaker Surgical History H/O aortic valve replacement Social History Smoking/Tobacco Use Status: Never Smoking risk assessment performed?: Yes Drug use: Never Do you feel safe in your relationship?: Yes Exam Const General: other (agitated at time, does not allow staff to move pt around on stretcher) Orientation: alert, awake and confused [facility] Head: normal to inspection Ears: hearing grossly normal bilaterally, external ears normal and TM's normal bilaterally General nose exam: external nose normal Face and sinus: normal facial exam Mouth: mucous membranes dry Eyes General: appearance normal, both eyes and all related structures Eyelids: eyelids normal Pupils: PERRL EOM: EOM intact bilaterally Neck Neck: normal visual inspection Lymphatic: no lymphadenopathy noted Chest Chest: normal inspection of the chest, normal palpation of entire chest wall and no tenderness Resp Effort & Inspection: normal respiratory effort and able to speak in complete sentences Auscultation: clear to auscultation bilaterally Cardio Rate: regular rate Rhythm: regular rhythm GI Inspection: normal to inspection and no abdominal wall ecchymosis Palpation: soft, not firm, no guarding, no hepatosplenomegaly, no masses and nontender Auscultation: hypoactive bowel sounds Back/Spine/Pelvis Back: no CVA tenderness Cervical Spine: No cervical spinal tenderness Thoracic/Lumbar Spine: thoracic and lumbar spine normal to inspection, No thoracic spinal tenderness and No lumbar spinal tenderness Skin General skin exam: no rashes or lesions noted Neuro General: patient alert, patient awake and no meningeal signs Extrem General: normal to inspection, full ROM and capillary refill normal Other: Patient lying on her left side. Bilateral hips and knees flexed. There is a 8 cm x 1 cm superficial abrasion consistent likely with pressure wound in the left groin. There is no evidence of cellulitis. Bilateral DP/PT pulses intact. Right hip normal to inspection. No evidence of trauma to right hip, knees, ankles or feet. Normal range of motion of bilateral upper extremities without observable pain or trauma. Chronic appearing scaly indurated papule to the right plantar foot w/o acute cellulitis. Psych Appearance: grossly normal Speech and Movement: speech and movement normal Affect: irritable affect
[2020-09-29 15:21] VITALS: BP 135/93; PULSE 116; RESP 20; TEMP 36.7; O2SAT 97
--- NOTE | 2020-09-29 15:45 | DI.CT_ITS ---
Exam(s) CT HEAD CERVICAL SPINE WO EXAM: CT HEAD CERVICAL SPINE WO CLINICAL HISTORY: s/p fall, dementia, r/o fx, injury. TECHNIQUE: Imaging Protocol: Axial computed tomography images with coronal and sagittal reformatted images were created and reviewed COMPARISON: CT HEAD WITHOUT CONTRAST from 11/02/2016 FINDINGS: BRAIN: There are no skull fractures nor fluid in the visualized paranasal sinuses. There is no evidence of intracranial hemorrhage, mass effect, or shift of midline structures. There are no extra-axial fluid collections. The ventricles are not enlarged or shifted and there is no blo od within the ventricular system nor within the basal cisterns. Relatively symmetrical atrophy noted. Prominent lateral and 3rd ventricles again evident. No blood therein. There is some mild periventricular hypodensity consistent with chronic small vessel disease , unchanged. CERVICAL SPINE: There is no evidence of fracture nor listhesis. No significant prevertebral soft tissue swelling. Moderate disc space narrowing at C5-6 and C6-7 levels. Possible small disc herniation C5-6 level. There is no significant facet joint malalignment. No significant osseous lesions evident. IMPRESSION: No acute intracranial findings on this noninfused CT scan of the brain. No evidence of cervical spine fracture, malalignment, nor acute compromise of the cervical spinal can al. Possible disc herniation at C5-6 level. If clinically indicated follow-up MRI can be performed for a dded sensitivity and specificity. RADIATION DOSE DELIVERED: 2,237.65mGy.cm Total DLP DATA REPOSITORY: All CT scans at this facility are submitted to the National Radiology Data Registry (NRDR) Dose Index Registry (DIR) with the [employer] ([employer]). RADIATION OPTIMIZATION: All CT scans at this facility use at least one of these dose optimization te chniques: automated exposure control; mA and/or kV adjustment per patient size (includes targeted exa ms where dose is matched to clinical indication); or iterative reconstruction.
--- NOTE | 2020-09-29 15:45 | DI.RAD_ITS ---
Exam(s) XR HIP LT COMPLETE AP PELVIS EXAM: XR HIP LT COMPLETE AP PELVIS CLINICAL HISTORY: s/p fall, r/o fx. TECHNIQUE: 2D digital imaging was performed. COMPARISON: No exams were available for comparison FINDINGS: There is a subcapital fracture of the left hip. Right hip is unremarkable and there are no other pel santy fractures identified. IMPRESSION: There is a subcapital fracture of the left hip. DATA REPOSITORY: RADIATION DOSE DELIVERED:
--- NOTE | 2020-09-29 15:45 | DI.RAD_ITS ---
Exam(s) XR CHEST 1V IN DI DEPT EXAM: XR CHEST 1V IN DI DEPT CLINICAL HISTORY: s/p fall, r/o fx. TECHNIQUE: 2D digital imaging was performed. COMPARISON: CR CHEST 2 VIEWS PA,LAT from 01/23/2017 FINDINGS: Again noted are sternotomy wires and aortic valve prosthesis and there is a bipolar left subclavian p acemaker with lead tips in are in RV, unchanged. Mild cardiomegaly. Mediastinum not widened. Lungs are clear. No infiltrates nor obvious pleural effusions. No pneumothorax. No obvious fractures. IMPRESSION: No acute pulmonary findings on this single AP portable view of the chest. Sternotomy. Pacemaker. Prosthetic aortic valve. No pulmonary edema. DATA REPOSITORY: RADIATION DOSE DELIVERED: All CT scans at this facility use at least one of these dose optimization techniques: automated exposure control; mA and/or kV adjustment per patient size (includes targeted e xams where dose is matched to clinical indication); or iterative reconstruction.
[2020-09-29] MEDS: LORazepam 2 MG/ML VIAL 0.5 MG IVP ×2 (16:54→18:15)
[2020-09-29] MEDS: Normal Saline Flush 10 ML SYR IVP ×3 (16:55→20:36)
--- NOTE | 2020-09-29 17:04 | DI.VRAD_ITS ---
PROCEDURE INFORMATION: Exam: XR Chest Exam date and time: 09/29/2020 3:52 PM Age: 70 years old Clinical indication: Other: S/P fall R/O FX TECHNIQUE: Imaging protocol: XR of the chest. Views: 1 view. COMPARISON: CR CHEST 2 VIEWS PA,LAT 01/23/2017 5:00 PM FINDINGS: Tubes, catheters and devices: Cardiac leads and postsurgical changes noted. Lungs: Faint bibasilar opacities. Mild blunting of the bilateral costophrenic angles. Heart/Mediastinum: Unremarkable. No cardiomegaly. Bones/joints: Unremarkable. IMPRESSION: 1. No displaced fracture. 2. Faint bibasilar opacities. Suspect atelectasis or infiltrate and tiny effusion on the right. Dictated and Authenticated by: Neal Paez MD. Ordering:CAROL Vasquez MD
--- NOTE | 2020-09-29 17:06 | DI.VRAD_ITS ---
PROCEDURE INFORMATION: Exam: XR Left Hip Exam date and time: 09/29/2020 3:52 PM Age: 70 years old Clinical indication: Other: S/P fall R/O FX TECHNIQUE: Imaging protocol: XR Left hip. Views: 2 or 3 views hip with pelvis when performed. COMPARISON: CT ABD/PELVIS WO W CONTRAST 07/08/2016 10:19 AM FINDINGS: Bones/joints: There is a transverse left femoral neck fracture. There is superior displacement of the distal fragment. Mild angulation. Soft tissues: Unremarkable. IMPRESSION: Mildly displaced left femoral neck fracture Dictated and Authenticated by: Neal Paez MD. Ordering:CAROL Vasquez MD
[2020-09-29] MEDS: ACETAMINOPHEN 1,000 MG/100 ML BTL 400 MG IVPB (17:13)
[2020-09-29 17:14] LABS: Abs Immature Grans 0.05 10^3/uL (0.0-0.06); Absolute Basophil Count 0.01 10^3/uL (0.0-0.2); Absolute Eosinophil Count 0.01 10^3/uL (0.0-0.7); Absolute Lymphocyte Count 0.96 10^3/uL (1.2-3.4); Absolute Monocyte Count 0.63 10^3/uL (0.1-0.8); Absolute Neutrophil Count 6.74 10^3/uL (1.2-6.7); Basophils % 0.1; Eosinophils % 0.1; HCT 41.9 % (36.0-46.0); HGB 13.9 g/dL (11.2-15.7); Immature Grans % 0.6; Lymphocytes % 11.4; MCH 31.1 pg (27.0-33.0); MCHC 33.2 % (32.0-36.0); MCV 93.7 fL (80-95); MPV 10.7 fL (8.0-11.0); Monocytes % 7.5; Neutrophils % 80.3; Nucleated RBC 0 %; Platelet Count 162 10^3/uL (130-400); RBC 4.47 10^6/uL (3.93-5.22); RDW 12.4 % (11.7-14.6); RDW-SD 42.5 fL
[2020-09-29] MEDS: Normal Saline 500 ML IV (17:14)
[2020-09-29 17:29] LABS: Creatine Kinase 113 U/L (26-192)
--- NOTE | 2020-09-29 17:30 | HPE_ITS ---
Date of service: 09/29/20 Time of Service: 17:30 Assessment and Plan Assessment and plan (1) Hip fracture: Status: Acute Assessment and plan: Hip fracture. Per ortho will defer repair until INR <1.7. Will give prn analgesics pending same. As to etiology of fall unknown if mechanical or syncopal. Will check EKG and place on telemetry. Updated information from [facility] that patient not in fact on Coumadin, and INR is 1.2. ER has notified Ortho. Will leave patient NPO in anticipation of surgery. AF: Patient on neither anticoagulation nor rate control meds. Will contact [facility] for most recent progress notes addressing these matters. Will make no changes to regimen at present. Code status: Records indicate DNR. History of Present Illness History of Present Illness Chief Complaint: hip pain Narrative: 70 female with dementia, resident of [facility] -- was found down today, unwitnessed fall. In ER findings of note for fracture left femoral neck. Son, BG, was contacted and advised he wished to have repair. Ortho was contacted and advised will need CASSANDRA, and will need to delay until INR <1.7 (INR pending at this time, patient reported to be on Coumadin for h/o AF). Patient has received MS 2mg IV, Ativan 0.5 IV and APAP 1000 IV.Patient unable to provide any history, but had previously reported hip pain to ER. Review of Systems Unobtainable due to mental status [facility] Medical History (Updated 09/29/20 @ 17:38 by Faisal Jones MD) Alzheimer's dementia Atrial fibrillation Fibromyalgia Pacemaker Surgical History (Updated 09/29/20 @ 18:05 by Christina Gonsalez DO) H/O aortic valve replacement Social History Smoking/Tobacco Use Status: Never Smoking risk assessment performed?: Yes Drug use: Never Do you feel safe in your relationship?: Yes Meds Allergies and Home Medications Allergies Allergy/AdvReac Type Severity Reaction Status Date / Time No Known Allergies Allergy Unverified 09/29/20 15:26 Home Medications Medication Instructions Recorded Confirmed Type acetaminophen 500 mg PO Q4H PRN 09/29/20 09/29/20 History acetaminophen [Tylenol Extra 640 mg PO TID 09/29/20 09/29/20 History Strength] bisacodyl 10 mg KS DAILY PRN 09/29/20 09/29/20 History docusate sodium [Colace] 100 mg PO BID PRN 09/29/20 09/29/20 History hyoscyamine sulfate 0.125 mg PO QID PRN 09/29/20 09/29/20 History lorazepam 0.5 - 1 mg IM Q4H PRN 09/29/20 09/29/20 History lorazepam 0.5 mg PO Q4H PRN 09/29/20 09/29/20 History morphine concentrate 5 mg SUBLINGUAL Q2H PRN 09/29/20 09/29/20 History ondansetron HCl 4 mg PO PRN PRN 09/29/20 09/29/20 History promethazine 25 mg KS Q6H PRN 09/29/20 09/29/20 History scopolamine base 1 patch TRANSDERMAL Q3D PRN 09/29/20 09/29/20 History Exam Narrative Exam Narrative: 135/93, 116, 36.7, 20, 97% RA. HEENT atraumatic; neck no spinal tenderness; lungs clear; heart tachy/regular; abdomen soft and NT; extremities laying left lateral decubitus position, unable to assess for any foreshortening, distal CSM intact LLE; neuro Ox1, moves all 4s Results Labs Result diagrams: 09/29/20 17:00 Labs: Laboratory Results - last 24 hr 09/29/20 17:00 Creatine Kinase 113 Last Vital Signs Temp 36.7 C 09/29/20 15:21 Pulse 116 H 09/29/20 15:21 Resp 20 09/29/20 15:21 BP 135/93 H 09/29/20 15:21 Pulse Ox 97 09/29/20 15:21
--- NOTE | 2020-09-29 17:30 | RT.EKG_ITS ---
APPROVED REPORT Exam: Resting ECG Reason for Exam: fall Patient Location: E HR:116 bpm ECG Measurements Heart Rate 116 AXIS HI [id number] P [id number] QRSd 126 QRS -7 QT 366 T 24 QTc 510 Conclusion Atrial fibrillation...V-rate 77-153, irreg A-activity Right bundle branch block...QRSd>120, terminal axis(90,270). Afib. RBBB. No significant change from previous EKGs. I have reviewed and interpreted ECG and agree with software generated interpretation.
[2020-09-29 17:40] LABS: INR 1.2 (0.9-1.1); PTT Activated 24.3 sec (21.0-27.5); Prothrombin Time 11.6 sec (9.3-11.0)
--- NOTE | 2020-09-29 18:33 | DI.VRAD_ITS ---
PROCEDURE INFORMATION: Exam: CT Head Without Contrast Exam date and time: 09/29/2020 3:47 PM Age: 70 years old Clinical indication: Injury or trauma; Fall; Concussion/head injury TECHNIQUE: Imaging protocol: Computed tomography of the head without contrast. COMPARISON: CT HEAD WITHOUT CONTRAST 11/02/2016 2:09 PM FINDINGS: Brain: Moderate white matter hypoattenuation present which is nonspecific, but most likely due to chronic small vessel ischemia. Cerebral ventricles: Moderate ventricular dilatation appears to be due to volume loss. Paranasal sinuses: Visualized sinuses are unremarkable. No fluid levels. Mastoid air cells: Visualized mastoid air cells are well aerated. Bones/joints: Unremarkable. No acute fracture. Soft tissues: Unremarkable. IMPRESSION: No acute intracranial pathology PROCEDURE INFORMATION: Exam: CT Cervical Spine Without Contrast Exam date and time: 09/29/2020 3:47 PM Age: 70 years old Clinical indication: Injury or trauma; Fall; Concussion/head injury TECHNIQUE: Imaging protocol: Computed tomography images of the cervical spine without contrast. COMPARISON: CT HEAD WITHOUT CONTRAST 11/02/2016 2:09 PM FINDINGS: Bones/joints: No acute fracture identified. Normal alignment. Discs/Spinal canal/Neural foramina: Multilevel degenerative changes cause [id number] neural foraminal stenoses in the mid cervical spine. Lungs: Lung apices are normal. Soft tissues: Unremarkable. Other findings: Motion limits exam. IMPRESSION: Motion limits exam. Fracture not suspected, but if there is high persistent clinical concern, repeat study is recommended. Dictated and Authenticated by: Neal Paez MD. Ordering:CAROL Vasquez MD
[2020-09-29 18:59] VITALS: BP 157/91; PULSE 103; RESP 17; TEMP 36.6; O2SAT 95
[2020-09-29 19:05] LABS: Bilirubin Negative (Negative); Blood Trace-intact (Negative); Clarity Sl Cloudy (Clear); Glucose Negative (Negative); Ketones Negative (Negative); Leukocyte Esterase Negative (Negative); Nitrite Positive (Negative); Urobilinogen 0.2 EU/dL (Up TO 0.2)
[2020-09-29 19:11] LABS: Source Nasal/Nares
[2020-09-29 19:11] LABS: ALT 42 U/L (14-59); AST 36 U/L (15-37); Albumin 3.7 g/dL (3.4-5.0); Alkaline Phosphatase 93 U/L (46-116); Anion Gap 10.3 mmol/L (3-11); BUN 21 mg/dL (7-18); Bilirubin, Total 0.7 mg/dL (0.2-1.0); CO2 26.7 mmol/L (21.0-32.0); CREATININE 0.8 mg/dL (0.55-1.02); Calcium 9.2 mg/dL (8.5-10.1); Chloride 107 mmol/L (98-107); Glucose 137 mg/dL (74-106); Potassium 3.9 mmol/L (3.5-5.1); Sodium 144 mmol/L (136-145); Total Protein 7.5 g/dL (6.4-8.2)
[2020-09-29 19:21] LABS: Bacteria Many HPF (Negative); Crystals Negative HPF (Negative); Epithelial Cells Rare HPF (Negative); RBC Negative HPF (0-2); WBC 0-2 HPF (0-5)
[2020-09-29 19:22] LABS: C & S Indicated? Yes; Casts Negative LPF (Negative); Mucus Negative (Negative)
[2020-09-29 20:18] VITALS: BP 129/90; PULSE 112; RESP 20; TEMP 36.5; O2SAT 97
[2020-09-29 20:20] LABS: COVID-19 PCR Negative (Negative)
[2020-09-29 20:30] VITALS: PULSE 114
[2020-09-29] MEDS: Lactated Ringers 1,000 ML 75 ML IV (20:35)
[2020-09-29] MEDS: MORPHine 4 MG/ML SYR IVP (20:35)
[2020-09-29 23:05] VITALS: PULSE 110
[2020-09-29 23:58] VITALS: BP 126/90; PULSE 98; RESP 16; TEMP 36.5; O2SAT 95
[2020-09-30] VITALS (12 sets, daily range): BP systolic 119–180; BP diastolic 61–91; PULSE 88–144; RESP 17–20; TEMP 36.5–37.4; O2SAT 94–99
--- NOTE | 2020-09-30 00:58 | NUR.NOTE ---
Unable to obtain history from patient due to mental status. Whenever patient is being repositioned she is noted to be crying out and in abvious discomfort. Medicated with MS while on the unitl, will continue monitoring and medicated during the shift.
[2020-09-30] MEDS: MORPHine 4 MG/ML SYR IVP ×2 (02:39→09:36)
[2020-09-30] MEDS: Normal Saline Flush 10 ML SYR IVP (02:40)
[2020-09-30 06:38] LABS: INR 1.2 (0.9-1.1); Prothrombin Time 12.1 sec (9.3-11.0)
--- NOTE | 2020-09-30 07:55 | OCONE_ITS ---
Date of service: 09/30/20 Time of Service: 12:32 History of Present Illness History of Present Illness Chief Complaint: Left Hip Fracture Narrative: Bonita is a 70yo [address] of the [facility]. She has severe dementia and is a resident for her dementia. She has known cardiac disease including valve replacement and atrial fibrillation but she has been taken off all of her medications. Per the family, she enjoys walking and helping out at the [facility] and would want to be able to keep moving. She was found down in her room yesterday evening and brought to the [facility] ED where she was diagnosed with a displaced left femoral neck fracture. She is fairly noncommunicative and the history was obtained from her family and nursing. She has reported pain in the left hip but not much else. She is admitted to the hospitalist service. Consults Consult date: 09/29/20 Requesting physician: Faisal Jones Consult Reason Left Subcapital Femoral Neck Fracture Assessment and Plan Assessment and plan (1) Closed subcapital fracture of neck of left femur: Status: Acute Assessment and plan: Bonita is a 70-year-old resident of the [facility] for vascular dementia and heart conditions. She has currently been made comfort measures at the [facility] by disconitnuing her baseline medications. She enjoys walking and unfortunately was found down with a hip fracture on the left. I had a discussion with the family and given the pain from the fracture and her enjoym ent of walking around the facility, they desired for her to have the fracture fixed. I reviewed the case with her [id number] who is DPOA with her son. I reviewed treatment options and agreed with proceeding with the surgery to fix the left hip. This would be a hemiarthroplasty and I reviewed the technical details of this. I was very honest that her heart is a significant concern and presents real risk to mortality and morbidity associated with the surgery. She is understanding of this and desires to proceed. I obtained verbal consent from Dennise Vaughan. NPO after midnight. Plan for anterior hemiarthroplasty tomorrow. Qualifiers: Encounter type: initial encounter Qualified Code(s): S72.012A - Unspecified intracapsular fracture of left femur, initial encounter for closed fracture Review of Systems All systems reviewed & are unremarkable except as noted in HPI and below PFSH Medical History Alzheimer's dementia Atrial fibrillation Fibromyalgia Pacemaker Surgical History H/O aortic valve replacement Social History Smoking/Tobacco Use Status: Never Smoking risk assessment performed?: Yes Drug use: Never Do you feel safe in your relationship?: Yes Exam Narrative Exam Narrative: Bonita is laying on her right side. She is sleeping and is difficult to arouse. She appears comfortable. The left leg is slightly shortened but difficult to fully appreciate given the position. The knee and leg appear non tender to palpation. She is unable to participate in a distal neuro or motor exam. No gross swellng/edema. No ecchymosis. Thigh is soft. Mild redness in the groin fold but no signs of active infection of the perineum or groin folds. Palpable DP/PT pulse. Results Last Vital Signs Temp 37.2 C 09/30/20 07:33 Pulse 122 H 09/30/20 07:33 Resp 17 09/30/20 07:33 BP 119/61 09/30/20 07:33 Pulse Ox 94 09/30/20 07:33 Labs Result diagrams: 09/29/20 17:00 09/29/20 17:00 Labs: Laboratory Results - last 24 hr 09/29/20 09/29/20 09/29/20 17:00 17:00 17:00 WBC 8.40 RBC 4.47 Hgb 13.9 Hct 41.9 MCV 93.7 MCH 31.1 MCHC 33.2 RDW 12.4 Plt Count 162 MPV 10.7 Immature Gran % 0.6 Neutrophils % 80.3 Lymphocytes % 11.4 Monocytes % 7.5 Eosinophils % 0.1 Basophils % 0.1 Nucleated RBC % 0 Absolute Neutrophils 6.74 H Absolute Lymphocytes 0.96 L Absolute Monocytes 0.63 Absolute Eosinophils 0.01 Absolute Basophils 0.01 PT 11.6 H INR 1.2 H APTT 24.3 Sodium Potassium Chloride Carbon Dioxide Anion Gap BUN Creatinine Estimated GFR/1.73 m2 Glucose Calcium Total Bilirubin AST ALT Alkaline Phosphatase Creatine Kinase 113 Total Protein Albumin Urine Color Urine Clarity Urine pH Ur Specific [place] Urine Protein Urine Ketones Urine Blood Urine Nitrite Urine Bilirubin Urine Urobilinogen Ur Leukocyte Esterase Urine RBC Urine WBC Ur Epithelial Cells Urine Crystals Urine Bacteria Urine Casts Urine Mucus Ur Culture Indicated? Urine Glucose COVID-19 Source SARS-CoV-2 (PCR) 09/29/20 09/29/20 09/29/20 17:00 18:51 19:07 WBC RBC Hgb Hct MCV MCH MCHC RDW Plt Count MPV Immature Gran % Neutrophils % Lymphocytes % Monocytes % Eosinophils % Basophils % Nucleated RBC % Absolute Neutrophils Absolute Lymphocytes Absolute Monocytes Absolute Eosinophils Absolute Basophils PT INR APTT Sodium 144 Potassium 3.9 Chloride 107 Carbon Dioxide 26.7 Anion Gap 10.3 BUN 21 H Creatinine 0.8 Estimated GFR/1.73 m2 >= 60.00 Glucose 137 H Calcium 9.2 Total Bilirubin 0.7 AST 36 ALT 42 Alkaline Phosphatase 93 Creatine Kinase Total Protein 7.5 Albumin 3.7 Urine Color Yellow Urine Clarity Sl Cloudy Urine pH 7.0 Ur Specific [place] 1.020 Urine Protein Negative Urine Ketones Negative Urine Blood Trace-intact H Urine Nitrite Positive H Urine Bilirubin Negative Urine Urobilinogen 0.2 Ur Leukocyte Esterase Negative Urine RBC Negative Urine WBC 0-2 Ur Epithelial Cells Rare Urine Crystals Negative Urine Bacteria Many Urine Casts Negative Urine Mucus Negative Ur Culture Indicated? Yes Urine Glucose Negative COVID-19 Source Nasal/Nares SARS-CoV-2 (PCR) Negative 09/30/20 06:10 WBC RBC Hgb Hct MCV MCH MCHC RDW Plt Count MPV Immature Gran % Neutrophils % Lymphocytes % Monocytes % Eosinophils % Basophils % Nucleated RBC % Absolute Neutrophils Absolute Lymphocytes Absolute Monocytes Absolute Eosinophils Absolute Basophils PT 12.1 H INR 1.2 H APTT Sodium Potassium Chloride Carbon Dioxide Anion Gap BUN Creatinine Estimated GFR/1.73 m2 Glucose Calcium Total Bilirubin AST ALT Alkaline Phosphatase Creatine Kinase Total Protein Albumin Urine Color Urine Clarity Urine pH Ur Specific [place] Urine Protein Urine Ketones Urine Blood Urine Nitrite Urine Bilirubin Urine Urobilinogen Ur Leukocyte Esterase Urine RBC Urine WBC Ur Epithelial Cells Urine Crystals Urine Bacteria Urine Casts Urine Mucus Ur Culture Indicated? Urine Glucose COVID-19 Source SARS-CoV-2 (PCR) Imaging Imaging Studies: X-ray of the left hip demonstrates a displaced femoral neck fracture. There is notable shortening. Bone quality appears very good without any sign of signficiant hip arthritis. No pelvic fracture. No suspicious soft tissue or bony lesions.
[2020-09-30] MEDS: Lactated Ringers 1,000 ML 75 ML IV (09:36)
[2020-09-30] MEDS: Nystatin POWDER 15 GM JAR TP ×3 (09:36→21:40)
--- NOTE | 2020-09-30 11:29 | INITIAL_ITS ---
- If Service Date Differs Date of service: 09/30/20 Time of Service: 11:29 Care Management Initial Assess REASON FOR HOSPITALIZATION:: hip fracture PAST MEDICAL HISTORY/PAST SURGICAL HISTORY:: Medical History (Updated 09/29/20 @ 17:38 by Faisal Jones MD). Alzheimer's dementia. Atrial fibrillation. Fibromyalgia. Pacemaker. Surgical History (Updated 09/29/20 @ 18:05 by Christina Gonaslez DO). H/O aortic valve replacement PREVIOUS FUNCTIONAL STATUS/SOCIAL/FAMILY SUPPORTS:: Bonita resides at the [facility]. Her brother Enrique is listed as a contact as well as his Dennise. Bonita has dementia and requires assistance with all ADLs. CURRENT FUNCTIONAL STATUS:: Bonita was lying in bed when CM met with her. She was not able to respond verbaly but appeared restless and agitated. Per nursing, she has been receiving morphine for her pain and she had received a dose shortly before CM's visit. ADVANCE DIRECTIVES:: none on file Has patient been provided with info about the portal/API?: Yes Did the patient sign up for the portal?: No CODE STATUS:: DNR/DNI INSURANCE COVERAGE / FINANCIAL ISSUES:: Medicare. [employer]. medicaid CURRENT HOME/COMMUNITY SERVICES/EQUIPMENT:: resides at the [facility] PRIMARY CARE PHYSICIAN:: Kiersten Oconnor POTENTIAL DISCHARGE NEEDS:: Follow up with PCP and plan of care PATIENT/FAMILY EDUCATION NEEDS:: Review of discharge instructions, limitations, follow up plan, medications, Ask Me Three TRANSPORTATION:: likely via ambulance coordinated by CM PLAN:: Bonita will likely return to the [facility]. She will follow up with their provider and plan of care and transport via EMS. CM will continue to support Bonita and her discharge planning needs.
--- NOTE | 2020-09-30 15:10 | W.PM.PROGNOT ---
Date of Service Date of service: 09/30/20 Time of Service: 15:11 Assessment and Plan Assessment and plan (1) Closed subcapital fracture of neck of left femur: Status: Acute Assessment and plan: Orthopedic surgeon plans on repair tomorrow. She is typically ambulatory at the nursing facility where she resides. She has been on comfort meds only at her facility but still ambulatory and eating. Qualifiers: Encounter type: initial encounter Qualified Code(s): S72.012A - Unspecified intracapsular fracture of left femur, initial encounter for closed fracture (2) Dementia: Status: Acute Assessment and plan: Currently she is lethargic; likely d/t pain medications to treat her femur fx. (3) Chronic atrial fibrillation: Status: Acute Assessment and plan: Not on rate controlling medication or anticoagulant. Initiated metoprolol 5mg IV Q6 hour d/t elevated HR and BP. She is not alert so oral medications would be risking aspiration. Monitor. (4) UTI (urinary tract infection): Status: Acute Assessment and plan: E. Coli growing in urine culture; final sensitivities pending. Rocephin initiated. Subjective Subjective Patient reports: afebrile; denies vomiting Interval history since last seen: Pt is asleep. She arouses to touch but doesn't open her eyes or attempt to communicate. Exam Const General: no acute distress Orientation: not awake Resp Effort & Inspection: normal respiratory effort Auscultation: clear to auscultation bilaterally Cardio Rhythm: abnormal rhythm irregularly irregular and other GI Palpation: soft and nontender Extrem General: no pedal edema and other (Lying on R side. with both hips flexed.) Left lower extremity: no cyanosis Objective Last Vital Signs Temp 37 C 09/30/20 13:02 Pulse 100 H 09/30/20 13:02 Resp 19 09/30/20 13:02 BP 180/72 H 09/30/20 13:02 Pulse Ox 96 09/30/20 13:02 Laboratory Results - last 24 hr 09/29/20 09/29/20 09/29/20 17:00 17:00 17:00 WBC 8.40 RBC 4.47 Hgb 13.9 Hct 41.9 MCV 93.7 MCH 31.1 MCHC 33.2 RDW 12.4 Plt Count 162 MPV 10.7 Immature Gran % 0.6 Neutrophils % 80.3 Lymphocytes % 11.4 Monocytes % 7.5 Eosinophils % 0.1 Basophils % 0.1 Nucleated RBC % 0 Absolute Neutrophils 6.74 H Absolute Lymphocytes 0.96 L Absolute Monocytes 0.63 Absolute Eosinophils 0.01 Absolute Basophils 0.01 PT 11.6 H INR 1.2 H APTT 24.3 Sodium Potassium Chloride Carbon Dioxide Anion Gap BUN Creatinine Estimated GFR/1.73 m2 Glucose Calcium Total Bilirubin AST ALT Alkaline Phosphatase Creatine Kinase 113 Total Protein Albumin Urine Color Urine Clarity Urine pH Ur Specific [place] Urine Protein Urine Ketones Urine Blood Urine Nitrite Urine Bilirubin Urine Urobilinogen Ur Leukocyte Esterase Urine RBC Urine WBC Ur Epithelial Cells Urine Crystals Urine Bacteria Urine Casts Urine Mucus Ur Culture Indicated? Urine Glucose COVID-19 Source SARS-CoV-2 (PCR) 09/29/20 09/29/20 09/29/20 17:00 18:51 19:07 WBC RBC Hgb Hct MCV MCH MCHC RDW Plt Count MPV Immature Gran % Neutrophils % Lymphocytes % Monocytes % Eosinophils % Basophils % Nucleated RBC % Absolute Neutrophils Absolute Lymphocytes Absolute Monocytes Absolute Eosinophils Absolute Basophils PT INR APTT Sodium 144 Potassium 3.9 Chloride 107 Carbon Dioxide 26.7 Anion Gap 10.3 BUN 21 H Creatinine 0.8 Estimated GFR/1.73 m2 >= 60.00 Glucose 137 H Calcium 9.2 Total Bilirubin 0.7 AST 36 ALT 42 Alkaline Phosphatase 93 Creatine Kinase Total Protein 7.5 Albumin 3.7 Urine Color Yellow Urine Clarity Sl Cloudy Urine pH 7.0 Ur Specific [place] 1.020 Urine Protein Negative Urine Ketones Negative Urine Blood Trace-intact H Urine Nitrite Positive H Urine Bilirubin Negative Urine Urobilinogen 0.2 Ur Leukocyte Esterase Negative Urine RBC Negative Urine WBC 0-2 Ur Epithelial Cells Rare Urine Crystals Negative Urine Bacteria Many Urine Casts Negative Urine Mucus Negative Ur Culture Indicated? Yes Urine Glucose Negative COVID-19 Source Nasal/Nares SARS-CoV-2 (PCR) Negative 09/30/20 06:10 WBC RBC Hgb Hct MCV MCH MCHC RDW Plt Count MPV Immature Gran % Neutrophils % Lymphocytes % Monocytes % Eosinophils % Basophils % Nucleated RBC % Absolute Neutrophils Absolute Lymphocytes Absolute Monocytes Absolute Eosinophils Absolute Basophils PT 12.1 H INR 1.2 H APTT Sodium Potassium Chloride Carbon Dioxide Anion Gap BUN Creatinine Estimated GFR/1.73 m2 Glucose Calcium Total Bilirubin AST ALT Alkaline Phosphatase Creatine Kinase Total Protein Albumin Urine Color Urine Clarity Urine pH Ur Specific [place] Urine Protein Urine Ketones Urine Blood Urine Nitrite Urine Bilirubin Urine Urobilinogen Ur Leukocyte Esterase Urine RBC Urine WBC Ur Epithelial Cells Urine Crystals Urine Bacteria Urine Casts Urine Mucus Ur Culture Indicated? Urine Glucose COVID-19 Source SARS-CoV-2 (PCR)
--- NOTE | 2020-09-30 15:28 | PHA.REVIEW ---
Pharmacy Admission Review - Admission Clinical Review (Last Reviewed 09/29/20 @ 17:35 by Faisal Jones MD) UTI (urinary tract infection) (Acute) Closed subcapital fracture of neck of left femur (Acute) Fracture of left hip (Acute) Hip fracture (Acute) Dementia (Acute) Chronic atrial fibrillation (Acute) No Known Allergies Allergy (Unverified 09/29/20 15:26) Resuscitation Status DNR/DNI Height 5 ft 3 in Weight 61.1 kg - Renal Dosing Renal Dosing: BUN 21 mg/dL (7-18) H 09/29/20 17:00 Creatinine 0.8 mg/dL (0.55-1.02) 09/29/20 17:00 Medications needing adjustments: Reviewed (Crcl ~53.35 mL/min current meds okay) - Anticoagulation Anticoagulation: Hgb 13.9 g/dL (11.2-15.7) 09/29/20 17:00 Hct 41.9 % (36.0-46.0) 09/29/20 17:00 Plt Count 162 10^3/uL (130-400) 09/29/20 17:00 INR 1.2 (0.9-1.1) H 09/30/20 06:10 Creatinine 0.8 mg/dL (0.55-1.02) 09/29/20 17:00 DVT Prophylaxis: N/A (provider aware, scheduled for surgery tomorrow) Therapeutic Anticoagulation: N/A (pt was no longer taking warfarin, was only on comfort meds at the [facility] per progress note) - Opiate Usage Evaluate Pain Scale/Pains Meds: Intervened Scheduled Bowel Reg ordered if on Opiates?: No (will mention to provider) - Relevant Labs Sodium 144 mmol/L (136-145) 09/29/20 17:00 Potassium 3.9 mmol/L (3.5-5.1) 09/29/20 17:00 Chloride 107 mmol/L (98-107) 09/29/20 17:00 Electrolytes, C-Reactive P, ESR: Reviewed - DM Control DM Control: Glucose 137 mg/dL (74-106) H 09/29/20 17:00 Insulin Dosing: N/A - Heart Failure/KS EF%, ELAINE's, B-Blockers, Diuretics: N/A - BP Control BP Control: Blood Pressure 180/72 Blood Pressure 119/61 If elevated: Reviewed (HR 100, IV metoprolol ordered Q6H) - Qtc Review If Elevated: Reviewed (QTc 510 on admission, pt currently has ondansetron ordered. Will mention to provider.) - IV to PO Switch IV Medications: Reviewed - Home Meds Home Med List reviewed: Reviewed (Multiple [employer]EL [employer] depressants and anticholinergic meds.) Relevent Home Meds Not ordered & why?: bisacodyl (PRN), docusate (PRN), hyoscyamine (PRN), promethazine (PRN), and scopolamine (PRN) - Current meds Current Medication Order Review: Reviewed - Comments Comments/Follow Ups: Continue to watch HR, BP, labs and for med changes (need of BM meds, avoid QT prolonging meds). Antibiotic Activity - Pharmacy Antibiotic Review Pharmacy Antibiotic Activity: C/S review (Urine culture growing E.coli. Ceftriaxone ordered for UTI.)
[2020-09-30] MEDS: Metoprolol 5 MG/5 ML VIAL IVP ×2 (16:33→23:20)
[2020-09-30] MEDS: cefTRIAXone 1 GM/50 ML BAG IVPB (16:33)
[2020-09-30] MEDS: ACETAMINOPHEN 1,000 MG/100 ML BTL 400 MG IVPB (20:50)
[2020-10-01] VITALS (20 sets, daily range): BP systolic 109–179; BP diastolic 69–94; PULSE 75–146; RESP 10–18; TEMP 36–36.7; O2SAT 92–100; BMI 23.8
[2020-10-01] MEDS: MORPHine 4 MG/ML SYR IVP ×3 (00:21→10:38)
[2020-10-01] MEDS: Lactated Ringers 1,000 ML 75 ML IV ×2 (00:21→13:52)
[2020-10-01] MEDS: Metoprolol 5 MG/5 ML VIAL IVP ×4 (04:59→21:39)
[2020-10-01] MEDS: ACETAMINOPHEN 1,000 MG/100 ML BTL 400 MG IVPB ×2 (05:00→16:36)
--- NOTE | 2020-10-01 10:28 | CMPROGNOTE_ITS ---
- If Service Date Differs Date of service: 10/01/20 Time of Service: 10:28 Care Management Progress Note S/O:Bonita remains confused and restless. She went to the OR today for surgery to repair her hip fracture. Bonita is a bit tachycardic, but otherwise her vital signs are stable. She will return to the [facility] when medically stable, likely within a day or two. A: Bonita ia a 70 year old woman admitted on 09/29/20 with a hip fracture P:Bonita will likely return to the [facility]. She will follow up with their provider and plan of care and transport via EMS. CM will continue to support Bonita and her discharge planning needs.
[2020-10-01] MEDS: Normal Saline Flush 10 ML SYR IVP ×2 (10:40→16:37)
[2020-10-01] MEDS: Nystatin POWDER 15 GM JAR TP ×2 (10:55→20:18)
--- NOTE | 2020-10-01 11:07 | W.PM.PROGNOT ---
Date of Service Date of service: 10/01/20 Time of Service: 11:07 Assessment and Plan Assessment and plan (1) Closed subcapital fracture of neck of left femur: Status: Acute Assessment and plan: Orthopedic surgeon planning femur fx repair today. She is typically ambulatory at the nursing facility where she resides. She has been on comfort meds only at her facility but still ambulatory and eating. Qualifiers: Encounter type: initial encounter Qualified Code(s): S72.012A - Unspecified intracapsular fracture of left femur, initial encounter for closed fracture (2) Dementia: Status: Acute Assessment and plan: Intermittently tries to get out of bed. Pulls at lines. PRN morphine given for restlessness or other signs/sxs of pain. (3) Chronic atrial fibrillation: Status: Acute Assessment and plan: Not on rate controlling medication or anticoagulant. Initiated metoprolol 5mg IV Q6 hour d/t elevated HR and BP. She is not alert so oral medications would be risking aspiration. HR improved but generally still in the low 100's. (4) UTI (urinary tract infection): Status: Acute Assessment and plan: E. Coli growing in urine culture; pansensitive. Continue Rocephin Subjective Subjective Patient reports: afebrile; denies vomiting Interval history since last seen: Pt is asleep; just received IV morphine for pain. Has not eaten or had any medications per mouth today. She becomes restless intermittently. Exam Const General: no acute distress Orientation: not awake Resp Effort & Inspection: normal respiratory effort Auscultation: clear to auscultation bilaterally Cardio Rhythm: abnormal rhythm irregularly irregular and other GI Palpation: soft and nontender Extrem General: no pedal edema and other (Lying on R side. with both hips flexed.) Left lower extremity: no cyanosis Objective Last Vital Signs Temp 36.4 C L 10/01/20 07:32 Pulse 128 H 10/01/20 10:48 Resp 17 10/01/20 07:32 BP 113/76 10/01/20 10:48 Pulse Ox 93 10/01/20 07:32
--- NOTE | 2020-10-01 11:12 | W.PM.PROGNOT ---
Date of Service Date of service: 10/01/20 Time of Service: 11:13 Assessment and Plan Assessment and plan (1) Closed subcapital fracture of neck of left femur: Status: Acute Assessment and plan: Bonita is a 70-year-old with a displaced subcapital neck fracture on the left side. I had a long discussion with her [id number] and son, Dennise and Enrique, who both agree with proceeding with the fixation of the left hip. While she does have severe dementia, she loves to walk and move around the facility and they believe she would want to be able to walk and move no matter the risk. I once again explained technical details of the procedure, anterior hemiarthroplasty. I reviewed the risk of the procedure to include bleeding, infection, pain, stiffness, secondary arthritis, fracture, blood clot, cardiopulmonary demise. She is n.p.o. we will proceed with hemiarthroplasty later today. Anesthesia aware of her medical history and cardiac history. Qualifiers: Encounter type: initial encounter Qualified Code(s): S72.012A - Unspecified intracapsular fracture of left femur, initial encounter for closed fracture Subjective Subjective Interval history since last seen: HR has been stable with the addition of Metoprolol. No acute changes. Comfortable with the morphine. Objective Last Vital Signs Temp 36.4 C L 10/01/20 07:32 Pulse 128 H 10/01/20 10:48 Resp 17 10/01/20 07:32 BP 113/76 10/01/20 10:48 Pulse Ox 93 10/01/20 07:32
--- NOTE | 2020-10-01 11:33 | W.ANESPRE ---
General Info Date of Service Date Performed: 10/01/20 Height: 5 ft 3 in Weight: 61.1 kg Body Mass Index (BMI): 23.8 Surgical Procedure: Operation Date: 10/01/20 12:25 Proposed Procedures Side Surgeon p Hip Uni/Bipolar Anterior Jonas Cohn MD Meds Allergies and Home Medications Allergies Allergy/AdvReac Type Severity Reaction Status Date / Time No Known Allergies Allergy Unverified 09/29/20 15:26 Home Medication Medication Instructions Recorded acetaminophen 500 mg PO Q4H PRN 09/29/20 acetaminophen [Tylenol Extra 640 mg PO TID 09/29/20 Strength] bisacodyl 10 mg NV DAILY PRN 09/29/20 docusate sodium [Colace] 100 mg PO BID PRN 09/29/20 hyoscyamine sulfate 0.125 mg PO QID PRN 09/29/20 lorazepam 0.5 - 1 mg IM Q4H PRN 09/29/20 lorazepam 0.5 mg PO Q4H PRN 09/29/20 morphine concentrate 5 mg SUBLINGUAL Q2H PRN 09/29/20 ondansetron HCl 4 mg PO PRN PRN 09/29/20 promethazine 25 mg NV Q6H PRN 09/29/20 scopolamine base 1 patch TRANSDERMAL Q3D PRN 09/29/20 Current Visit Medications: Current Medications Generic Name Dose Route Start Last Admin Trade Name Freq PRN Reason Stop Dose Admin Bisacodyl 10 mg 09/30/20 15:55 Bisacodyl 10 Mg Supp NV DAILY PRN PRN Dimethicone/Zinc Oxide 0 gm 09/29/20 17:47 Kymberly Protect Cream 142 Gm Tube TP PRN PRN Acetaminophen 1,000 mg in 100 mls @ 400 mls/hr 09/29/20 17:47 10/01/20 05:00 Ofirmev IVPB 400 mls/hr Q8H PRN PRN Administration Ringer's Solution 1,000 mls @ 75 mls/hr 09/29/20 18:00 10/01/20 00:21 IV 75 mls/hr INFUSION MATT Administration Ceftriaxone Sodium/Dextrose 1 gm in 50 mls @ 100 mls/hr 09/30/20 14:00 09/30/20 16:33 Rocephin IVPB 100 mls/hr Q24H MATT Administration IV Miscellaneous Supplies 1 each 09/29/20 15:45 Iv Access IV DIRECTED MATT Lorazepam 0.5 mg 09/29/20 17:47 Lorazepam 2 Mg/Ml Vial IVP Q4H PRN PRN Metoprolol Tartrate 5 mg 09/30/20 22:00 10/01/20 10:37 Metoprolol 5 Mg/5 Ml Vial IVP 5 mg Q6H MATT Administration Morphine Sulfate 2 - 4 mg 09/29/20 20:18 10/01/20 10:38 Morphine 4 Mg/Ml Syr IVP 4 mg Q2H PRN PRN Administration PAIN Protocol Nystatin 15 gm 09/30/20 08:30 10/01/20 10:55 Nystatin Powder 15 Gm Jar TP 1 applic TID MATT Administration Ondansetron HCl 4 mg 09/29/20 17:47 Ondansetron 4 Mg/2 Ml Vial IVP Q4H PRN PRN Polyethylene Glycol 17 gm 09/30/20 15:55 Polyethylene Glycol 3350 17 Gm Packet PO DAILY PRN PRN Sennosides 1 tab 09/30/20 15:55 Senna Tab PO BID PRN PRN Sodium Chloride 0 ml 09/29/20 15:45 10/01/20 10:40 Normal Saline Flush 10 Ml Syr IVP 10 ml PRN PRN Administration PFSH Active Problems Active Problems: Problem Status Onset Code UTI (urinary tract infection) N39.0 Closed subcapital fracture of neck of left femur S72.012A Fracture of left hip S72.002A Hip fracture S72.009A Chronic anticoagulation Z79.01 Dementia F03.90 Chronic atrial fibrillation I48.2 Pyuria N39.0 Medical History Medical History Alzheimer's dementia Atrial fibrillation Fibromyalgia Pacemaker Surgical History Surgical History H/O aortic valve replacement Tobacco Smoking/Tobacco Use Status: Never Substance Use Substance use: Never Vital Signs and Lab Results Vital Signs Most Recent Vital Signs in EMR: Most Recent Vital Signs Temp Pulse Resp BP Pulse Ox 36.3 C L 113 H 18 124/75 92 10/01/20 11:28 10/01/20 11:28 10/01/20 11:28 10/01/20 11:22 10/01/20 11:28 Lab Results Result Diagrams: 09/29/20 17:00 09/29/20 17:00 Blood Type / Crossmatch: No Data to Display Complete Blood Count: White Blood Count 8.40 10^3/uL (4.4-10.8) 09/29/20 17:00 09/29/20 Red Blood Count 4.47 10^6/uL (3.93-5.22) 09/29/20 17:00 09/29/20 Hemoglobin 13.9 g/dL (11.2-15.7) 09/29/20 17:00 09/29/20 Hematocrit 41.9 % (36.0-46.0) 09/29/20 17:00 09/29/20 Platelet Count 162 10^3/uL (130-400) 09/29/20 17:00 09/29/20 Complete Metabolic Panel: Sodium Level 144 mmol/L (136-145) 09/29/20 17:00 09/29/20 Potassium Level 3.9 mmol/L (3.5-5.1) 09/29/20 17:00 09/29/20 Chloride Level 107 mmol/L (98-107) 09/29/20 17:00 09/29/20 Carbon Dioxide Level 26.7 mmol/L (21.0-32.0) 09/29/20 17:00 09/29/20 Blood Urea Nitrogen 21 mg/dL (7-18) H 09/29/20 17:00 09/29/20 Creatinine 0.8 mg/dL (0.55-1.02) 09/29/20 17:00 09/29/20 Estimated GFR/1.73 m2 >= 60.00 (mL/min/1.73m2) 09/29/20 17:00 09/29/20 Calcium Level 9.2 mg/dL (8.5-10.1) 09/29/20 17:00 09/29/20 Albumin 3.7 g/dL (3.4-5.0) 09/29/20 17:00 09/29/20 Glucose Level 137 mg/dL (74-106) H 09/29/20 17:00 09/29/20 Liver Function Panel: Alanine Aminotransferase (ALT/SGPT) 42 U/L (14-59) 09/29/20 17:00 09/29/20 Aspartate Amino Transf (AST/SGOT) 36 U/L (15-37) 09/29/20 17:00 09/29/20 Coagulation Panel: INR International Normalized Ratio 1.2 (0.9-1.1) H 09/30/20 06:10 09/30/20 Prothrombin Time 12.1 sec (9.3-11.0) H 09/30/20 06:10 09/30/20 Activated Partial Thromboplast Time 24.3 sec (21.0-27.5) 09/29/20 17:00 09/29/20 Cardiac Panel: Creatine Kinase 113 U/L (26-192) 09/29/20 17:00 09/29/20 Arterial Blood Gas: No Data to Display Venous Blood Gas: No Data to Display Pancreas Panel: No Data to Display Thyroid Panel: No Data to Display Infectious Disease: Coronavirus (COVID-19)(PCR) Negative (Negative) 09/29/20 19:07 09/29/20 Coronavirus 2019 Source Nasal/Nares 09/29/20 19:07 09/29/20 Blood Cultures: No Data to Display Toxicology Panel: No Data to Display Imaging and Studies Imaging and Studies EKG Summary: Conclusion Atrial fibrillation...V-rate 77-153, irreg A-activity Right bundle branch block...QRSd>120, terminal axis(90,270). Echocardiogram Summary: Summary: 1. Left ventricle: The cavity size was normal. Systolic function was hyperdynamic. The estimated ejection fraction was 65-70%. 2. Aortic valve: A mechanical prosthesis was present and functioning normally. The sewing ring appeared normal. No paravalvular leak. EOA: 2.0 cm2. DOI: 0.7. Peak velocity 2 m/sec. There was mild regurgitation. Indexed valve area (VTI): 1.2cm^2/m^2. 3. Mitral valve: Mildly calcified annulus. There was mild regurgitation. 4. Left atrium: The atrium was severely dilated. 5. Right ventricle: The cavity size was normal. Wall thickness was normal. Pacer wire or catheter noted in right ventricle. Systolic function was normal. 6. Right atrium: The atrium was severely dilated. 7. Atrial septum: No defect or patent foramen ovale was identified. 8. Tricuspid valve: There was severe regurgitation. 9. Pulmonary arteries: Pulmonary systolic pressure was in the range of 35mm Hg to 50mm Hg. 10. Inferior vena cava: The vessel was dilated. The respirophasic diameter changes were blunted (less than 50%), consistent with elevated central venous pressure. Anesthesia Assessment and Plan Anesthesia History Personal History: Unknown Anesthesia History (pt disoriented, unable to answer questions) Family History: Family History Unknown Exercise Tolerance Exercise Tolerance: Metabolic Equivalents<4 (immobile at this time) Pertinent Negatives Pertinent Negatives: No Symptoms of GERD, No Major Pulmonary Symptoms or Complaints, No History of CVA/TIA and Other (chronic Afib, last HR: 116. receiving IV metoprolol on inpatient unit. hx aortic valve replacement. severe tricuspid regurg, moderate mitral regurg with dilated IVC. INR 1.2) Cardiac & Pulmonary Exam Cardiac Exam: Other (HR irregular, chronic Afib) Pulmonary Exam: Clear Bilateral Breath Sounds Airway Exam Known Difficult Airway: No Mallampati Class: Unable to Assess Mouth Opening: Normal (> 3cm) Thyromental Distance: Greater than 3 cm Neck Range of Motion: Unable to Assess Neck Circumference: Normal Teeth Condition: Edentulous ASA Classification ASA Score: ASA 4 Emergency Case?: Yes NPO Status NPO Status: NPO Clears >2 hours, Solids >8 hours Anesthesia Plan Resuscitation Status: DNR/DNI (Pharmacologic management, but no heroic measures Verified with provider who took telephone consent and per her no CPR per family. ) Anesthesia Technique: General Anesthesia (REBECCA block) Airway Planned: Natural Airway Monitors Used: Standard Monitors
--- NOTE | 2020-10-01 13:08 | W.ANESNERVE ---
Nerve Block Single Injection Procedure Date and Time Date Performed: 10/01/20 Procedure Start: 12:54 Location Where Procedure Performed Procedure Location: Operating Room Procedure Stop: 13:01 Reason Performed: Acute Pain Management Pain Diagnosis: Hip Pain Requesting Provider: Jonas Cohn Timeout Performed Timeout Performed: Yes Monitoring Used ECG, Blood Pressure, SpO2 and ETCO2 Sterility Sterility: Hand Hygiene, Surgical Cap, Surgical Mask, Sterile Gloves, Eye Protection and Chlorhexidine Sedation Given During Procedure Sedation Given (Indicate Dose Given): No Sedation given Patient Mental Status Patient Mental Status: Performed under general anesthesia Nerve Block 1st Nerve Block: Laterality: Left Block Type: REBECCA Needle / Catheter Used: 100mm SonoPlex II Local Anesthetic Bolus (Indicate Dose Given): Injected in 3-5ml increments after negative blood aspiration, Bupivacaine 0.25% Dose:: 15mL and Other (Lidocaine 1%) Medication/Route/Dose:: 5mL Additives (Indicate Dose Given): None Ultrasound: Sterile probe cover and gel used Ultrasound Image Saved?: Yes Nerve Stimulator: Not Used Paresthesia: None Procedure Tolerated: No Complications and Patient tolerated well Procedure Outcome: Successful Performed By: Adela Villalba Supervised By: Faisal Reyna
--- NOTE | 2020-10-01 14:06 | DI.RAD_ITS ---
Exam(s) XR HIP LT IN OR EXAM: XR HIP LT IN OR CLINICAL HISTORY: Closed subcapital fracture of neck of left femur. TECHNIQUE: 2D and realtime digital imaging was performed. COMPARISON: No exams were available for comparison FINDINGS: Hard copy images show placement of a left hip prosthesis. The alignment appears satisfactory. Please see procedure note for details. Fluoro time 36 seconds. RADIATION DOSE DELIVERED: Kar=3.43 mGy
--- NOTE | 2020-10-01 14:17 | ROE_ITS ---
Date of service: 10/01/20 Time of Service: 14:17 Operative Note Operative Note DATE OF PROCEDURE: 10/01/20 PRE-OP DIAGNOSIS: Left Femoral Neck Fracture POST-OP DIAGNOSIS: same PROCEDURE: Left Anterior Total Hip Arthroplasty SURGEON: Jonas Conh ANESTHESIA TYPE: General:No Airway and Other (REBECCA Block) Refer to Anesthesia Record ESTIMATED BLOOD LOSS: 300 PATHOLOGY: none sent COMPLICATIONS: None Patient was transported to: PACU Patient's condition: stable Implants: 1. Depuy Evangelista Unipolar Head, 45mm 2. Depuy Jewell Ridge Insert, +5 3. Depuy Corail Short Neck Collared Femoral Stem, Size 11 Indications: I have seen Bonita in consultation for a left femoral neck fracture, confirmed with radiographic findings. Due to the fracture displacement, I offered surgical fixation with a hemiarthroplasty. I reviewed this with Bonita's DPTED and brother, Enrique. I discussed the technical details of a hemiarthroplasty. I explained the risks of the procedure to include, but not limited to, bleeding, infection, pain, stiffness, fracture, damage to nerves and vessels, damage to muscles and tendons, loosening, instability, leg length inequality, need for repeat procedure, blood clot and cardiopulmonary demise. Despite these risks, Bonita elected to proceed. Findings: There was a displaced femoral neck fracture. THe cortical bone was quite good and therefore I proceeded with a cementless femoral stem. Procedure Description: Bonita was greeted in the preoperative holding area where the correct side was identified and marked. The consent was reviewed with the patient's DPOA and brother, Enrique. She was taken back to the operating room. A REBECCA block was administered with ultrasound guidance. A uninstrumented general anesthetic was then administered. The feet were wrapped with cast padding and Coban and then placed into the boot liners and then into the boots. Care was taken to protect the skin and make sure the heels were fully down and the boots were stable. The patient was then positioned onto the HANA table. Both legs were held in a neutral position. SCDs were applied. The patient was then slid down onto a peroneal post. Prophylactic antibiotics in the form of Cefazolin were administered. The left leg was then prepped with Chloraprep and draped in a standard fashion. A second prep with Chloraprep was performed prior to placement of a shower-curtain type drape with Iodine impregnated skin protection. A timeout to confirm correct identity, side and site, procedure, allergies, anesthesia, and medical concerns was performed. An obliquely oriented incision was made starting lateral to the ASIS and running distal over the Tensor Fascia Jennifer (TFL) muscle belly toward the fibular head, approximately 10cm. The skin and soft tissue was dissected sharply, through Loyda?s fascia, and to the fascia of the TFL. With the fascia and superior border of the IT band identified, the fascia was incised with a new knife just above any perforators from the IT band. The TFL muscle belly was bluntly dissected away from the fascia and moved laterally. The fat between TFL and rectus was identified to ensure the dissection was not within the TFL. Blunt dissection created space between abductors and the capsule and retractor was placed over the lateral femoral neck. The fibers of the rectus femoris tendon were identified and these were freed from the anterior capsule. A second cobra retractor was placed around the medial femoral neck. The TFL was further retracted laterally to show the deep fascia. Careful dissection through this layer identified three main crossing vessels of the lateral femoral circumflex. These were cauterized in multiple locations and then cut without any noticeable bleeding. The TFL was further released bluntly from the deep fascia to expose anterior hip capsule and fat The Raúl orthopaedic retractor was then placed beneath the TFL and against sartorius and medial soft tissues to protect and retract the soft tissues. A T-capsulotomy was then performed starting at the superior lateral acetabulum and moving distally to the intertrochanteric ridge. These capsular flaps were tagged with a No. 1 Ethibond and elevated from within. The capsular flaps were released to the shoulder of the lateral neck and to the lesser trochanter to give excellent visualization of the proximal femur. The neck osteotomy was then performed based on preoperative templates with a small oscillating saw. This napkin ring of femoral neck was removed with a rongeur. The femoral head was then removed with a corkscrew and measured on the back table as 44/45mm. Any bone fragments were removed. The acetabulum had no loose pieces within and no signs of arthritis. The leg was rotated to 120 degrees. Any remaining medial capsule was released until the lesser trochanter was easily palpable. A retractor was placed medially. The lateral capsule was further released into the shoulder to allow access to the greater trochanter. A Caass retractor was placed over the greater trochanter which allowed the trochanter to flip in front of the capsule for excellent exposure. The leg was brought down into maximal extension and 20 degrees of adduction while ensuring there was no impingement on the acetabulum. Any remnant capsule within the trochanter was released. Piriformis and obturator externis were identified and protected. There was excellent access to the proximal femur. The lateral neck remnant was removed with a rongeur. A blunt canal probe was used to identify the canal and trajectory for later broaching. A box osteotome initiated the broach course. A small curved curette were used to work laterally. Broaching then began with a size 8 Corail broach. This was inserted manually around the trochanter and into the canal before mallet blows. The broach was seated to the neck cut level based on the neck cut and the preoperative template. Sequential broaching was continued until a tight fit was obtained with good rotational control of the femur. A trial 45+0 head was placed onto the short neck trial. The leg was brought out of extension and adduction and then reduced with traction and internal rotation. The leg was stable anteriorly in a position of 30 degrees of extension and 90 degrees of external rotation. Fluoroscopy was used to ensure there was no fracture and the stem was seated well. Leg lengths were checked with an AP pelvis and pelvic reference points and an alignment kaylin. The leg was brought back into extension, external rotation and adduction. The trial was noted to be slightly looser than it was before although it had not subsided. Therefore, I advanced the broach approximately 3-4 mm where it became rotationally stable. Due to this I went up to the +5 neck option. The periosteum and surrounding tissue was injected with the shilpa-articular cocktail which consisted of 0.25% Bupivacaine, 30mg Ketorolac, and 20cc Exparel. The proximal femur was irrigated as well as the deep tissues. The Depuy Corail short neck collared stem, size 11, was then manually inserted into the proximal femur making sure to control rotation. It was then malleted into position with light blows, giving breaks to allow bone expansion and decrease risk of fracture. I also packed some bone from the planing and the femoral head into the proximal femur as I inserted the femoral stem. The selected Depuy 45mm Evangelista Unipolar head with a +5 neck was then placed onto the clean and dry trunnion and secured with impaction onto the tapered fit. The leg was brought back out of extension and adduction and reduced with traction and internal rotation. Stability was confirmed with no shuck at 90 degrees of external rotation and 30 degrees of extension. No impingement through range of motion arc. Final x-ray images were obtained with fluoroscopy to confirm adequate positioning and no intraoperative fracture. COMPLICATION The deep tissues were thoroughly irrigated with Irrisept chlorhexadine solution. The capsule was then reapproximated with the previously placed Ethibond sutures. The TFL fascia was finally closed with a No. 2 Stratafix, barbed suture. Deep tissues were then reapproximated with 0 Vicryl and a running 2-0 Vicryl. The skin was closed with a running 4-0 Monocryl in a subcuticular fashion. This was reinforced with skin glue. A Mepilex silver dressing was applied. At the end of the case, all counts were correct. Bonita was transferred to the hospital bed without difficulty and suffering no apparent complication. She has a good prognosis. Physical therapy will start today and without restrictions, weight-bearing as tolerated. Aspirin 81mg BID will be used for DVT prophylaxis.
[2020-10-01] MEDS: cefTRIAXone 1 GM/50 ML BAG IVPB (15:48)
--- NOTE | 2020-10-01 15:55 | W.ANESPOSTOP ---
Postoperative Evaluation Date, Time and Location Date Performed: 10/01/20 Time Performed: 15:55 Patient Location: PACU Vital Signs Most Recent Imported Vital Signs: Most Recent Vital Signs Temp Pulse Resp BP Pulse Ox 36.1 C L 110 H 15 130/81 95 10/01/20 15:18 10/01/20 15:18 10/01/20 15:18 10/01/20 15:18 10/01/20 15:18 Pain Score Most Recent Pain Score: Most Recent Pain Score Pain Level 0 10/01/20 15:18 Assessment Mental Status: Awake (Alert & Oriented to Patient Baseline) Airway and Respiratory Function: Patent airway with normal (patient baseline) respiratory exam Cardiovascular Function: Hemodynamically Stable Hydration Status: Adequately Hydrated Nausea & Vomiting: No Nausea or Vomiting Pain: Pt. Denies Any Pain Peripheral Nerve Block: Patient did not receive a nerve block
[2020-10-01] MEDS: ceFAZolin 1 GM/50 ML BAG IVPB (16:36)
--- NOTE | 2020-10-01 17:31 | PT.INNT ---
Date of service: 10/01/20 Time of Service: 16:42 PT Notes Visit Reasons: Hip Fracture Patient is a LTC resident of [facility] with pre-existing cognitive impairment. Attempted evaluation x 1 but patient had significant drowsiness and per Nurse Vladislav, had difficulty following instructions when she briefly awoke earlier. Nurse Loomis recommended holding off on evaluation until tomorrow morning due to altered level of alertness. Thank you for the opportunity to participate in the care of this patient. Dory Mixon PT, DPT, CLT [facility] [place], [place]
[2020-10-02] VITALS (13 sets, daily range): BP systolic 95–139; BP diastolic 54–85; PULSE 20–139; RESP 16–20; TEMP 36.1–36.9; O2SAT 96–99
[2020-10-02] MEDS: ceFAZolin 1 GM/50 ML BAG IVPB (00:04)
[2020-10-02] MEDS: Ketorolac 15 MG/ML VIAL IVP ×3 (00:04→22:35)
[2020-10-02] MEDS: MORPHine 4 MG/ML SYR IVP (02:56)
[2020-10-02] MEDS: Metoprolol 5 MG/5 ML VIAL IVP ×4 (04:37→22:46)
[2020-10-02] MEDS: Lactated Ringers 1,000 ML 75 ML IV (04:37)
--- NOTE | 2020-10-02 07:53 | W.PM.PROGNOT ---
Date of Service Date of service: 10/02/20 Time of Service: 07:53 Assessment and Plan Assessment and plan (1) Closed subcapital fracture of neck of left femur: Status: Acute Assessment and plan: Status post anterior hip hemiarthroplasty for left femoral neck fracture. Unfortunately, Ms. Jain still is refusing oral intake. This very well could be related to her dementia and his response to the surgery and the stress and pain. It also could represent the unfortunate overall demise of her person as we know that hip fractures sometimes portend a poor mortality prognosis. I encourage nursing to work on getting her up to the edge of the bed or at least sitting up in the bed and poss even taken a few steps with physical therapy. Continue to encourage p.o. intake but supplement as needed. We should also make the family aware of her refusal to take any food or liquid by mouth at this time. She has no restrictions with positioning of the hip. She may weight-bear as tolerated with assistive devices. Qualifiers: Encounter type: initial encounter Qualified Code(s): S72.012A - Unspecified intracapsular fracture of left femur, initial encounter for closed fracture Subjective Subjective Interval history since last seen: Nursing reports that Ms. Jain has been relatively somnolent. She has refused any oral intake. She has demonstrated some pain with mobilization within the bed. Vital signs have otherwise been stable. Spangler catheter continues to drain urine. Exam Narrative Exam Narrative: Quite sleepy in the bed. Evaluation the left leg shows a clean dry and intact dressing. Objective Last Vital Signs Temp 36.1 C L 10/02/20 04:43 Pulse 122 H 10/02/20 04:43 Resp 18 10/02/20 04:43 BP 112/84 10/02/20 04:43 Pulse Ox 98 10/02/20 04:43
[2020-10-02 10:12] LABS: Abs Immature Grans 0.04 10^3/uL (0.0-0.06); Absolute Basophil Count 0.01 10^3/uL (0.0-0.2); Absolute Lymphocyte Count 0.86 10^3/uL (1.2-3.4); Absolute Monocyte Count 1.17 10^3/uL (0.1-0.8); Absolute Neutrophil Count 7.72 10^3/uL (1.2-6.7); Basophils % 0.1; HCT 36.6 % (36.0-46.0); HGB 12.2 g/dL (11.2-15.7); Immature Grans % 0.4; Lymphocytes % 8.8; MCH 30.9 pg (27.0-33.0); MCHC 33.3 % (32.0-36.0); MCV 92.7 fL (80-95); MPV 11.8 fL (8.0-11.0); Monocytes % 11.9; Neutrophils % 78.8; Nucleated RBC 0 %; Platelet Count 166 10^3/uL (130-400); RBC 3.95 10^6/uL (3.93-5.22); RDW 12.1 % (11.7-14.6); RDW-SD 41.5 fL
[2020-10-02] MEDS: Normal Saline Flush 10 ML SYR IVP ×4 (10:19→22:36)
[2020-10-02] MEDS: Nystatin POWDER 15 GM JAR TP ×3 (10:19→22:34)
--- NOTE | 2020-10-02 10:47 | IN_ITS ---
Date of service: 10/02/20 Time of Service: 10:47 PT Notes Visit Reasons: Hip Fracture Physical Therapy Inpatient Initial Evaluation Date: 10/02/2020 Referring Doctor: Jonas Cohn MD PT Orders: PT CONSULT: Status post Ortho surgery. Status post left anterior hemiarthroplasty. Precautions: Fall. Standard. WBAT on L LE with AD. Patient Profile/Admitting Diagnosis: Bonita is a 70-year-old female with displaced left femoral neck fracture sustained from a fall and is status post left hip hemiarthroplasty on postoperative day 1. PMHX: Medical History (Updated 09/29/20 @ 17:38 by Faisal Jones MD) Alzheimer's dementia Atrial fibrillation Fibromyalgia Pacemaker Surgical History (Updated 09/29/20 @ 18:05 by Christina Gonsalez DO) H/O aortic valve replacement Social History/Home Situation: Unable to extract information from client, not a reliable historian, has pre-existing dementia. Lives as a long-term care resident at the [facility]. Patient known to this provider to be independent with ambulation with no assistive device when she was seen over 5 years ago in the SNF. Equipment Owned/DME: Unknown Subjective: Face grimaced. Fidgety in B hands. Does not attempt to get up from bed. Was favoring L LE when PT and WELLNESS GUIDE attempted a sit-stand transfer. Objective: General Observation: Patient appears to be not comfortable based on facila expression and restlessness. Nurse Vladislav updated about patient's pain behavior. Mental Status: Disoriented as to person, place, time. Unable to follow simple commands. Unable to focus. Pain: Facial griacing, increased restlessness in B UE, withraws L LE with attempts at standing ROM: Right Upper Extremity: Grossly 3/5 Left Upper Extremity: Grossly 3/5 Right Lower Extremity: Hip flexion WFL. Hip abduction WFL. Knee flexion WFL. Ankle dorsiflexion WFL. Ankle plantarflexion WFL Left Lower Extremity: Grossly 3-/5 Strength: Right Upper Extremity: Shoulder flexors 5/5. Shoulder abductors 5/5. Elbow flexors 5/5. Elbow extensors 5/5. Director [employer] strong. Left Upper Extremity: Shoulder flexors 5/5. Shoulder abductors 5/5. Elbow flexors 5/5. Elbow extensors 5/5. Director [employer] strong. Right Lower Extremity: Hip flexors 5/5. Hip abductors 5/5. Knee flexors 5/5. Knee extensors 5/5. Ankle dorsiflexors 5/5. Ankle plantarflexors 5/5. Left Lower Extremity: Hip flexors 5/5. Hip abductors 5/5. Knee flexors 5/5. Knee extensors 5/5. Ankle dorsiflexors 5/5. Ankle plantarflexors 5/5. Bed Mobility/Transfers: Rolling moderate assist of 2 Supine to sit moderate assist of 2 Sit to supine moderate assist of 2 Sit to stand maximal assist of 3 Stand to sit maximal assist of 3 Reclining chair to bed maximal assist of 3 Gait: Unable at this time Balance: Static Sitting: Normal Dynamic Sitting: Fair Static Standing: Unable Dynamic Standing: Unable Special Tests: Mobility Limitations Standardized Measure [facility] AM-PAC 6 clicks Basic Mobility Inpatient Short Form: Raw Score: 6 CMS Score: 100% deficit Informed Consent/Education: POA agreeable to PT POC as tolerated by patient. Assessment: Patient with poor prognosis for achieving mobility goal due to poor cognition and pain level. Mechanical lift only for all transfers with nursing staff. Will continue to assess appropriateness of services based on patient's response to treatment on a daily basis and will coordinate with care management as needed. Patient presents with clinical signs and symptoms consistent with current/admitting diagnoses that have resulted to mobility limitations, gait instability, generalized weakness, and overall ADL decline as demonstrated by the following impairment level findings: 1. Decreased strength to B LE major muscle groups 2. Impaired standing balance 3. Impaired activity tolerance 4. Limitation of joint range of motion in L LE 5. Unable to follow single-step commands 6. Pain in L LE Impairments are contributing to the following functional limitations: 1. Decline in bed mobility skills 2. Decline in transfer skills 3. Difficulty with ambulation without assistive device and physical assistance 4. Increased completion time for mobility ADL performance 5. Increased risk for falls 6. Difficulty with managing steps alone safely Patient is assessed as a 18939 high complexity based on the following: History: 70-year-old female with past medical history as indicated above Examination: Demonstrable impairment in strength, balance, and mobility level with underlying impairments and functional limitations as exhibited above as well as deficit score of 100% utilizing the [facility] Mobility Inpatient Short Form Presentation: Evolving Decision Makin high complexity Goals: Goals X1 week 1. Supine-Sit minimal assist 2. Sit-Supine minimal assist 3. Sit-Stand minimal assist 4. Stand-Sit minimal assist 5. Bed-Chair moderate assist 6. Chair-Bed moderate assist 7. Moderate assist gait on level surface with use of front wheeled walker for at least 30 feet without report of pain nor dyspnea 8. Fair static and dynamic standing balance/tolerance Plan of Care/Treatment Plan: 1-2x/day, 7 days/week x 1 week. Plan of care has been reviewed with the WELLNESS GUIDE providing the service under Physical Therapy direction. Initiate Physical Therapy intervention for pain management as needed, strengthening, bed mobility, transfers, gait, stairs, balance training, and use of assistive device. DISCHARGE RECOMMENDATIONS: Patient will return to custodial facility for continued skilled physical therapy services in order to progress mobility level, strength, and balance in preparation for a safe discharge to home. TREATMENT CODE/TIME: 21545 x 17 minutes beginning at 10:47 AM. Thank you for the opportunity to participate in the care of this patient. Dory Mixon PT, DPT, CLT [facility] [place], [place]
[2020-10-02] MEDS: ACETAMINOPHEN 1,000 MG/100 ML BTL 400 MG IVPB ×2 (12:27→22:34)
--- NOTE | 2020-10-02 13:50 | PGE_ITS ---
Date of Service Date of service: 10/02/20 Time of Service: 13:51 Assessment and Plan Assessment and plan (1) Closed subcapital fracture of neck of left femur: Status: Acute Assessment and plan: POD #1 s/p left femur fx repair. She is typically ambulatory at the nursing facility where she resides. She has been on comfort meds only at her facility but still ambulatory and eati ng. Family states the goal is comfort and hopefully restoring her to the ability to ambulate PT efforts appreciated. Qualifiers: Encounter type: initial encounter Qualified Code(s): S72.012A - Unspecified intracapsular fracture of left femur, initial encounter for closed fracture (2) Dementia: Status: Acute Assessment and plan: Confused. Not wanting to eat but doesn't indicate she is in pain (either directly/verbally or indirectly) other than with transfers. Not aggressive today but did pull out her IV for the second time. (3) Chronic atrial fibrillation: Status: Acute Assessment and plan: Not on rate controlling medication or anticoagulant. Initiated metoprolol 5mg IV Q6 hour d/t elevated HR and BP. She is refusing anything per os. (4) UTI (urinary tract infection): Status: Acute Assessment and plan: E. Coli growing in urine culture; pansensitive. Continue Rocephin Subjective Subjective Patient reports: afebrile; denies diarrhea and vomiting Interval history since last seen: Sitting up in chair. Not eating her breakfast. Confused. Exam Const General: no acute distress Orientation: awake and confused Resp Effort & Inspection: normal respiratory effort Auscultation: clear to auscultation bilaterally Cardio Rhythm: abnormal rhythm irregularly irregular and other GI Palpation: soft and nontender Extrem General: no pedal edema and other (Lying on R side. with both hips flexed.) Left lower extremity: no cyanosis Objective Last Vital Signs Temp 36.6 C 10/02/20 10:41 Pulse 116 H 10/02/20 10:41 Resp 19 10/02/20 10:41 BP 109/78 10/02/20 10:41 Pulse Ox 98 10/02/20 10:41 Laboratory Results - last 24 hr 10/02/20 10/02/20 09:08 09:08 WBC 9.80 RBC 3.95 Hgb 12.2 Hct 36.6 MCV 92.7 MCH 30.9 MCHC 33.3 RDW 12.1 Plt Count 166 MPV 11.8 H Immature Gran % 0.4 Neutrophils % 78.8 Lymphocytes % 8.8 Monocytes % 11.9 Eosinophils % 0.0 Basophils % 0.1 Nucleated RBC % 0 Absolute Neutrophils 7.72 H Absolute Lymphocytes 0.86 L Absolute Monocytes 1.17 H Absolute Eosinophils 0.00 Absolute Basophils 0.01 Patient ABO/Rh O Positive Antibody Screen NEGATIVE
--- NOTE | 2020-10-02 14:12 | PT.INTREAT ---
Date of service: 10/02/20 Time of Service: 13:40 PT Notes Visit Reasons: Hip Fracture Inpatient Physical Therapy Treatment Note [facility] Date: 10/02/2020 PRECAUTIONS: WBAT L, Fall SUBJECTIVE: Bonita is pleasant, although appears confused. OBJECTIVE: PAIN: Patient rubbed L lateral thigh with transfer BED MOBILITY/TRANSFERS Supine-sit: Max A x2 with HOB flat Sit-stand: Max A x2 Stand-sit: Max A x2 Chair-bed: Max A x2 (stand-pivot transfer) GAIT Assistive Device: OPERATOR [employer] x2 Weight bearing: WBAT L Assist: Max A x2 Distance: Stand-pivot chair-bed Deviation: Pain THEREX: Performed PROM to L LE into hip and knee flexion, hip abduction, and knee extension, as per flow sheet. ASSESSMENT: Patient tolerated session with c/o pain in L lateral thigh. She requires Max A x2 for all transfers, bed mobility, and transfers. PLAN: Continue with transfer training and PROM on L LE, as tolerated TREATMENT CODE/TIME: 15 minutes; 38549 (13:40)
[2020-10-02] MEDS: cefTRIAXone 1 GM/50 ML BAG IVPB (14:17)
--- NOTE | 2020-10-02 17:11 | CMPROGNOTE_ITS ---
- If Service Date Differs Date of service: 10/02/20 Time of Service: 17:11 Care Management Progress Note S/O:Bonita remains confused and restless. She was sitting up in a chair when CM met with her. She was fidgeting with her araujo catheter and staff members were using diversion is an effort to distract her. PT attempted to work with Bonita today but the session did not go well. Bonita is unable to understand or follow directions and was unable to bear weight on the affected leg. Bonita is also refusing po intake much of the time. She did manage to take in just under 300 cc but is still requiring IV fluids.drink A: Bonita ia a 70 year old woman admitted on 09/29/20 with a hip fracture P:Bonita will likely return to the [facility]. She will follow up with their provider and plan of care and transport via EMS. CM will continue to support Bonita and her dischrge planning needs.
[2020-10-03] VITALS (15 sets, daily range): BP systolic 94–127; BP diastolic 53–87; PULSE 88–144; RESP 16–18; TEMP 36.5–36.9; O2SAT 97–100
[2020-10-03] MEDS: Lactated Ringers 1,000 ML 75 ML IV ×2 (01:59→16:27)
[2020-10-03] MEDS: Metoprolol 5 MG/5 ML VIAL IVP ×2 (04:13→10:19)
[2020-10-03] MEDS: Nystatin POWDER 15 GM JAR TP ×3 (07:20→20:58)
--- NOTE | 2020-10-03 08:13 | PDOC.CMPRO ---
- If Service Date Differs Date of service: 10/03/20 Time of Service: 08:13 Care Management Progress Note S/O:Bonita was sitting up in bed when CM met with her. She was eating a bagel and drinking Coca Cola at the time. This is an improvement as she has been refusing food and fluids for the most part. Physical therapy continues to try to work with Bonita however she is unable to comprehend directions and cues making transfers and ambulation problematic. It is unlikely that Bonita will be able to ambulate prior to discharge. A: Bonita ia a 70 year old woman admitted on 09/29/20 with a hip fracture P:Bonita will likely return to the [facility]. She will follow up with their provider and plan of care and transport via EMS. CM will continue to support Bonita and her discharge planning needs.
[2020-10-03 09:36] LABS: Anion Gap 6.5 mmol/L (3-11); BUN 30 mg/dL (7-18); CO2 29.5 mmol/L (21.0-32.0); CREATININE 0.6 mg/dL (0.55-1.02); Calcium 8.6 mg/dL (8.5-10.1); Chloride 106 mmol/L (98-107); Glucose 88 mg/dL (74-106); Potassium 3.8 mmol/L (3.5-5.1); Sodium 142 mmol/L (136-145)
[2020-10-03] MEDS: Ketorolac 15 MG/ML VIAL IVP ×2 (10:19→19:55)
[2020-10-03] MEDS: cefTRIAXone 1 GM/50 ML BAG IVPB (14:20)
--- NOTE | 2020-10-03 14:31 | PT.INTREAT ---
Date of service: 10/03/20 Time of Service: 10:50 PT Notes Visit Reasons: Hip Fracture Inpatient Physical Therapy Treatment Note [facility] Date: 10/03/2020 PRECAUTIONS: WBAT L, Fall SUBJECTIVE: Bonita is pleasant, although appears confused. When asked she reports that she does not have pain. OBJECTIVE: PAIN: No c/o pain BED MOBILITY/TRANSFERS Supine-sit: Max A x2 with HOB flat Sit-supine: Max A x3 with HOB flat Sit-stand: Max A x2 Stand-sit: Max A x2 Bed-chair: STEDY lift Chair-bed: Max A x2 (stand-pivot transfer) GAIT Assistive Device: [employer] x2 Weight bearing: WBAT L Assist: Max A x2 Distance: Stand-pivot chair-bed Static towboat captain STEDY with intermittent posterior support x~3 minutes with CGA THEREX: Performed PROM to L LE into hip flexion, knee extension, hip abduction, and ankle plantar/dorsiflexion, as per flow sheet. ASSESSMENT: Patient tolerated session without c/o pain. She continues to require Max A x2 for all transfers, bed mobility, and transfers, although was able to tolerate use of STEDY lift with assist x3 in a.m. PLAN: Continue with transfer training and PROM on L LE, as tolerated TREATMENT CODE/TIME: Session 1: 25 minutes; 34229 x2 (10:50)
--- NOTE | 2020-10-03 15:02 | PGE_ITS ---
Date of Service Date of service: 10/03/20 Time of Service: 15:02 Assessment and Plan Assessment and plan (1) Closed subcapital fracture of neck of left femur: Status: Acute Assessment and plan: POD #2 s/p left femur fx repair. She is typically ambulatory at the nursing facility where she resides. She has been on comfort meds only at her facility but still ambulatory and eati ng. Family states the goal is comfort and hopefully restoring her to the ability to ambulate PT efforts appreciated. Qualifiers: Encounter type: initial encounter Qualified Code(s): S72.012A - Unspecified intracapsular fracture of left femur, initial encounter for closed fracture (2) Dementia: Status: Acute Assessment and plan: Confused. Her baseline is to eat small amounts sporadically. She is doing this today as well as drinking Ensure. She has been more calm today; smiles more frequently. (3) Chronic atrial fibrillation: Status: Acute Assessment and plan: Not on rate controlling medication or anticoagulant. Initiated metoprolol 5mg IV Q6 hour d/t elevated HR and BP. Increase to 10mg She is refusing anything per os. (4) UTI (urinary tract infection): Status: Acute Assessment and plan: E. Coli growing in urine culture; pansensitive. Continue Rocephin Subjective Subjective Patient reports: afebrile; denies diarrhea and vomiting Interval history since last seen: Sitting up in chair. She has eaten small amts sporadically. We were informed by the [facility] staff that this is her norm. Worked with PT. Exam Const General: no acute distress Orientation: awake and confused Resp Effort & Inspection: normal respiratory effort Auscultation: clear to auscultation bilaterally Cardio Rhythm: abnormal rhythm irregularly irregular and other GI Palpation: soft and nontender Extrem General: no pedal edema and other (Lying on R side. with both hips flexed.) Left lower extremity: no cyanosis Objective Last Vital Signs Temp 36.7 C 10/03/20 13:12 Pulse 88 10/03/20 13:12 Resp 18 10/03/20 13:12 BP 94/59 L 10/03/20 13:12 Pulse Ox 98 10/03/20 13:12 Laboratory Results - last 24 hr 10/03/20 09:20 Sodium 142 Potassium 3.8 Chloride 106 Carbon Dioxide 29.5 Anion Gap 6.5 BUN 30 H Creatinine 0.6 Estimated GFR/1.73 m2 >= 60.00 Glucose 88 Calcium 8.6
[2020-10-03] MEDS: Metoprolol 5 MG/5 ML VIAL 10 MG IVP ×2 (16:38→22:38)
[2020-10-03] MEDS: MORPHine 4 MG/ML SYR IVP (18:39)
[2020-10-03] MEDS: ACETAMINOPHEN 1,000 MG/100 ML BTL 400 MG IVPB (19:55)
[2020-10-04 00:19] VITALS: PULSE 98
[2020-10-04] MEDS: MORPHine 4 MG/ML SYR IVP (03:58)
[2020-10-04 04:26] VITALS: BP 153/88; PULSE 125; RESP 18; TEMP 36.8; O2SAT 99
[2020-10-04 04:28] VITALS: BP 153/88; PULSE 114
[2020-10-04] MEDS: Normal Saline Flush 10 ML SYR IVP (04:28)
[2020-10-04] MEDS: Metoprolol 5 MG/5 ML VIAL 10 MG IVP (04:28)
[2020-10-04 04:48] VITALS: BP 117/79; PULSE 80
[2020-10-04 07:00] VITALS: PULSE 99
[2020-10-04] MEDS: ACETAMINOPHEN 1,000 MG/100 ML BTL 400 MG IVPB (08:23)
[2020-10-04 08:24] VITALS: BP 114/78; PULSE 95; RESP 16; TEMP 36.4; O2SAT 86
[2020-10-04] MEDS: Nystatin POWDER 15 GM JAR TP (08:35)
[2020-10-04] MEDS: Lactated Ringers 1,000 ML 75 ML IV (09:47)
--- NOTE | 2020-10-04 10:16 | PDOC.CMDIS ---
- If Service Date Differs Date of service: 10/04/20 Time of Service: 10:16 LACE Index Scoring Tool - Questions: Length of Stay (in days): 4 - 6 Acuity (Admit via E.D.?): Yes Comorbidities: Dementia E.D. Visits: 1 - Answers: Total Score: 11 Risk of Readmission: High Risk Care Management Discharge Reason for Hospitalization: hip fracture Discharge Plan: Bonita will return to the [facility] where she is a resident and will be placed back on comfort care. She will follow up with their provider and plan of care and transport via EMS. Patient/Family Education Needs: Review of discharge instructions and Ask Me Three Services Needed at Discharge: Intermediate Facility
--- NOTE | 2020-10-04 10:51 | W.PM.DS.N ---
Date of service: 10/04/20 Time of Service: 10:51 DS: Diagnosis Discharge Diagnosis (1) Closed subcapital fracture of neck of left femur: Status: Acute Asessment and Plan: S/P repair. Pain is improving. Requires assistance with transfers. WBAT on the left lower ext. (2) Dementia: Status: Acute Asessment and Plan: Significant confusion. Not showing aggression. (3) Chronic atrial fibrillation: Status: Acute Asessment and Plan: Ventricular response is rapid and has been under fair control with IV metoprolol. Patient has been on comfort measures only prior to admission and will return to the same. (4) UTI (urinary tract infection): Status: Acute Asessment and Plan: She has completed a course of IV Rocephin. Discharge Plan Disposition Patient Disposition: [facility] Condition: Stable Discharge Details Reason For Visit: Hip Fracture Admit Date/Time: 09/29/20 17:50 Admit Provider: Faisal Jones Attending Provider: Faisal Jones [facility]: Returning to the [facility] and will be evaluated by provider there within the next week. Home Meds and New Rx's Prescriptions: Continued ondansetron HCl 4 mg tablet 4 mg PO PRN PRNRF: 0 acetaminophen 500 mg Capsule 640 mg PO TID RF: 0 promethazine 25 mg Suppository 25 mg LA Q6H PRNRF: 0 lorazepam 2 mg/mL Solution 0.5 - 1 mg IM Q4H PRNRF: 0 acetaminophen 500 mg Tablet 500 mg PO Q4H PRNRF: 0 lorazepam 0.5 mg Tablet 0.5 mg PO Q4H PRNRF: 0 bisacodyl 10 mg Suppository 10 mg LA DAILY PRNRF: 0 hyoscyamine sulfate 0.125 mg Tablet, Sublingual 0.125 mg PO QID PRNRF: 0 docusate sodium [Colace] 100 mg Capsule 100 mg PO BID PRNRF: 0 scopolamine base 1 mg over 3 days Patch 3 Day 1 patch TRANSDERMAL Q3D PRNRF: 0 morphine concentrate 20 mg/mL Syringe 5 mg SUBLINGUAL Q2H PRNRF: 0 Discharge Instructions Additional Instructions: Dr. Cohn's Hip Discharge Instructions Activity: The most important activity is to walk and move. You have no restrictions on movement or positioning, but do not try to force what you do. There will be some stiffness and weakness with hip flexion (lifting your knee). - Physical therapy should continue with a focus Dressing: Keep the surgical dressing in place for at least one week. After the first week it may be removed and replace with light gauze and tape or nothing. It may get wet after 3 days but avoid soaking the dressing. If it gets wet, just lightly pat dry. It is important to always keep some gauze between skin folds, especially when you are sitting. Follow-up: 4 weeks If you have any acute concerns or questions, please do not hesitate to contact the office at [phone]. You may contact Dr. Cohn with any questions after hours through the hospital at [phone] or on his cell phone at [phone]. Activity:: Activity as Tolerated Equipment/Supplies:: No Equipment Needed Diet:: Normal Diet Discharge Orders Discharge Orders: Discharge Order (Routine); Ordered 10/04/20 Ordered By: Franklyn Garcia DS: Summary Time Spent with Patient providing and/or coordinating discharge services: Greater than 30 minutes Status at Discharge Functional status at discharge: bed bound (Currently requires assistance to transfer.) Overall status at discharge: patient is not back to baseline Mental Status: other (+ dementia with signicant confusion) Speech and Movement: delayed speech (Verbalizes sparingly) Mood: euthymic mood Affect: blunted Exam Const General: no acute distress Orientation: awake and confused Other: She is now eating small amounts intermittently. Resp Effort & Inspection: normal respiratory effort Auscultation: clear to auscultation bilaterally Cardio Rhythm: abnormal rhythm irregularly irregular and other GI Palpation: soft and nontender Extrem General: no pedal edema and other (Lying on R side. with both hips flexed.) Left lower extremity: no cyanosis Psych Speech and Movement: delayed speech (Verbalizes sparingly) Mood: euthymic mood Affect: blunted DS: Data Vitals/I&O Vitals and I&O: Vital Signs Temperature 36.4 C L 10/04/20 08:24 Temperature Source Skin 10/04/20 08:24 Pulse 95 H 10/04/20 08:24 Pulse Rhythm Irregular 10/04/20 07:35 Respiratory Rate 16 10/04/20 08:24 Respiratory Effort Non-Labored 10/04/20 07:35 Respiratory Depth Normal 10/04/20 07:35 Respiratory Pattern Normal 10/04/20 07:35 Blood Pressure 114/78 10/04/20 08:24 Blood Pressure Position Supine 09/29/20 15:21 Pulse Oximetry 86 L 10/04/20 08:24 Respiratory End-tidal CO2 40 10/01/20 15:18 Oxygen Delivery Method Room Air 10/04/20 08:24 Oxygen Flow Rate 0 10/04/20 08:24 Pain Level 3 10/04/20 08:23 Comment 10/04/20 08:25 Intake & Output 10/03/20 10/03/20 10/04/20 11:59 23:59 11:59 Intake Total 0 / 1490 1490 / 1490 1100 / 1100 Output Total 300 / 900 600 / 900 350 / 350 Balance -300 / 590 890 / 590 750 / 750 Intake: IV 0 / 1100 1100 / 1100 1100 / 1100 Oral 390 / 390 Output: Urine 300 / 900 600 / 900 350 / 350 Other: Urine Color Dark Emily Yellow Light Emily Urine Appearance Clear Clear Clear Stool Size Smear Stool Characteristics Soft Brown PFSH Medical History Alzheimer's dementia Atrial fibrillation Fibromyalgia Pacemaker Surgical History H/O aortic valve replacement Social History Smoking/Tobacco Use Status: Never Smoking risk assessment performed?: Yes Drug use: Never Do you feel safe in your relationship?: Yes
--- NOTE | 2020-10-04 12:28 | PT.INNT ---
Date of service: 10/04/20 Time of Service: 10:50 PT Notes Visit Reasons: Hip Fracture 10/04/2020 Placement of abduction wedge pillow for positioning and contracture prevention. Patient was somewhat resistant at first, but allowed me to place the pillow and secure the straps to upper and lower legs, bilaterally. She appears comfortable and somewhat settled in a supine position in bed at this time. 5 minutes (10:45) - No charge
--- NOTE | 2020-10-04 17:00 | PT.INIE ---
Date of service: 10/04/20 Time of Service: 08:09 PT Notes Visit Reasons: Hip Fracture Physical Therapy Inpatient Discharge Summary Date: 10/04/2020 Referring Doctor: Jonas Cohn MD PT Orders: PT CONSULT: Status post Ortho surgery. Status post left anterior hemiarthroplasty. Precautions: Fall. Standard. WBAT on L LE with AD. Patient Profile/Admitting Diagnosis: Bonita is a 70-year-old female with displaced left femoral neck fracture sustained from a fall and is status post left hip hemiarthroplasty on postoperative day 3 on day of facility discharge. PMHX: Medical History (Updated 09/29/20 @ 17:38 by Faisal Jones MD) Alzheimer's dementia Atrial fibrillation Fibromyalgia Pacemaker Surgical History (Updated 09/29/20 @ 18:05 by Christina Gonsalez DO) H/O aortic valve replacement Social History/Home Situation: Unable to extract information from client, not a reliable historian, has pre-existing dementia. Lives as a long-term care resident at the [facility] Patient known to this provider to be independent with ambulation with no assistive device when she was seen over 5 years ago in the SNF. Equipment Owned/DME: Unknown Subjective: NT. PLease see most recent AUTO JOB ESTIMATOR notes. Objective: General Observation: NT. PLease see most recent AUTO JOB ESTIMATOR notes. Mental Status: NT. PLease see most recent AUTO JOB ESTIMATOR notes. Pain: NT. PLease see most recent AUTO JOB ESTIMATOR notes. ROM: Right Upper Extremity: Grossly 3/5 Left Upper Extremity: Grossly 3/5 Right Lower Extremity: Hip flexion WFL. Hip abduction WFL. Knee flexion WFL. Ankle dorsiflexion WFL. Ankle plantarflexion WFL Left Lower Extremity: Grossly 3-/5 Strength: Right Upper Extremity: Shoulder flexors 5/5. Shoulder abductors 5/5. Elbow flexors 5/5. Elbow extensors 5/5. Airport Ramp Supervisor strong. Left Upper Extremity: Shoulder flexors 5/5. Shoulder abductors 5/5. Elbow flexors 5/5. Elbow extensors 5/5. Airport Ramp Supervisor strong. Right Lower Extremity: Hip flexors 5/5. Hip abductors 5/5. Knee flexors 5/5. Knee extensors 5/5. Ankle dorsiflexors 5/5. Ankle plantarflexors 5/5. Left Lower Extremity: Hip flexors 5/5. Hip abductors 5/5. Knee flexors 5/5. Knee extensors 5/5. Ankle dorsiflexors 5/5. Ankle plantarflexors 5/5. Bed Mobility/Transfers: Rolling moderate assist of 2 Supine to sit moderate assist of 2 Sit to supine moderate assist of 2 Sit to stand maximal assist of 3 Stand to sit maximal assist of 3 Reclining chair to bed maximal assist of 3 Gait: Unable at this time Balance: Static Sitting: Normal Dynamic Sitting: Fair Static Standing: Unable Dynamic Standing: Unable Assessment: Patient with poor prognosis for achieving mobility goal due to poor cognition and pain level. Mechanical lift only for all transfers with nursing staff. Will continue to assess appropriateness of services based on patient's response to treatment on a daily basis and will coordinate with care management as needed. Able to tolerate the sit-stand/STEDY lift at time of discharge. Pre-existing dementia remains a significant barrier to functional mobility progression. Patient continues to present with clinical signs and symptoms consistent with current/admitting diagnoses that have resulted to mobility limitations, gait instability, generalized weakness, and overall ADL decline as demonstrated by the following impairment level findings: 1. Decreased strength to B LE major muscle groups 2. Impaired standing balance 3. Impaired activity tolerance 4. Limitation of joint range of motion in L LE 5. Unable to follow single-step commands 6. Pain in L LE Impairments are continuing to contribute to the following functional limitations: 1. Decline in bed mobility skills 2. Decline in transfer skills 3. Difficulty with ambulation without assistive device and physical assistance 4. Increased completion time for mobility ADL performance 5. Increased risk for falls 6. Difficulty with managing steps alone safely Goals: Goals X1 week 1. Supine-Sit minimal assist NOT MET 2. Sit-Supine minimal assist NOT MET 3. Sit-Stand minimal assist NOT MET 4. Stand-Sit minimal assist NOT MET 5. Bed-Chair moderate assist NOT MET 6. Chair-Bed moderate assist NOT MET 7. Moderate assist gait on level surface with use of front wheeled walker for at least 30 feet without report of pain nor dyspnea NOT MET 8. Fair static and dynamic standing balance/tolerance NOT MET DISCHARGE RECOMMENDATIONS: Patient will return to detention facility for continued skilled physical therapy services in order to progress mobility level, strength, and balance in preparation for a safe discharge to home. TREATMENT CODE/TIME: [place] Thank you for the opportunity to participate in the care of this patient. Dory Mixon PT, DPT, CLT [facility] [place], [place]
== END 2020-10-04 13:20 | disposition designated cancer center or children's hospital (05) | DRG 522 ==
LOC: ER 17:56 → MS 19:31
PROVIDERS: Family Medicine; Student in an Organized Health Care Education/Training Program; Admitting Provider General Practice; Emergency Provider Physician Assistant; PCP Family Medicine; Visit Provider General Practice
PROC: 0SRB0JA Replacement of Left Hip Joint with Synthetic Substitute, Uncemented, Open Approach (ICD-10-PCS; CPT 27125; principal; 2020-10-01 12:15)
DX: S72.012A Unspecified intracapsular fracture of left femur, initial encounter for closed fracture (principal); N39.0 Urinary tract infection, site not specified; I48.20 Chronic atrial fibrillation, unspecified; G30.9 Alzheimer's disease, unspecified; F02.80 Dementia in other diseases classified elsewhere, unspecified severity, without behavioral disturbance, psychotic disturbance, mood disturbance, and anxiety; W19.XXXA Unspecified fall, initial encounter; Z95.0 Presence of cardiac pacemaker; M79.7 Fibromyalgia; B96.20 Unspecified Escherichia coli [E. coli] as the cause of diseases classified elsewhere; Z20.822 Contact with and (suspected) exposure to COVID-19
CPT/HCPCS: 27130; 36410; 36415; 51702; 80048; 80053; 82550; 86850; 86900; 86901; 87077; 87081; 87635; 93005; 96361; 96365; 96375; 97163; 97530; 99222; 99285; 70450; 71045; 72125; 73501; 73502; 81003; 81015; 85025; 85610; 85730; 87086; 87186; 93010; 99232; 99239; J0131; J0690; J0696; J1100; J1885; J2001; J2060; J2270; J2370